=== PATIENT | male | born 1955 | race Caucasian/White ===

== ENCOUNTER 2016-12-02 09:27 | Inpatient (IN) | payer BC ==
[2016-10-17 13:08] VITALS: BMI 24.0
--- NOTE | 2016-10-17 13:37 | PAT Medication Instructions ---
Service Date Oct 17, 2016. Current Home Medication List Acetaminophen (Tylenol Arthritis Ext Rel), 1,300 MG PO PRN Ascorbic Acid (Vitamin C), 500 MG PO QAM Etodolac (Etodolac), 1 TAB PO BID Lorazepam (Ativan), 0.5 MG PO PRN Multivitamin (Multivitamin), 1 TAB PO QAM Nutritional Supplements (Dhea), 1 TAB PO DAILY [Viagra], 1 TAB PEG PRN Medication Instructions For Your Scheduled Surgery Etodolac (Etodolac), 1 TAB PO BID (check with surgeon for instructions) - Hold the following medications the morning of surgery: Nutritional Supplements (Dhea), 1 TAB PO DAILY Multivitamin (Multivitamin), 1 TAB PO QAM Ascorbic Acid (Vitamin C), 500 MG PO QAM [Viagra], 1 TAB PEG PRN - Take the following medications the morning of surgery with a sip of water: Lorazepam (Ativan), 0.5 MG PO PRN Acetaminophen (Tylenol Arthritis Ext Rel), 1,300 MG PO PRN - Take the following medications as scheduled the night before surgery: Lorazepam (Ativan), 0.5 MG PO PRN Acetaminophen (Tylenol Arthritis Ext Rel), 1,300 MG PO PRN [Viagra], 1 TAB PEG PRN If you have any questions please call us at [phone] (Symone Lawrence PA-C) or [phone] or [phone]
[2016-10-17 14:26] LABS: BASO % 0.6 %; BASO ABS # 0.03 K/uL (0-0.2); COMPLETE YES; EOS % 1.2 %; HEMATOCRIT 41.1 % (42-52); IG% 0.2 %; LYMPH % 25.5 %; LYMPH ABS # 1.28 K/uL (1.2-3.4); MEAN CELL VOLUME 90.9 fL (80-100); MEAN CORPUSCULAR HEMOGLOBIN 32.5 pg (25-34); MEAN CORPUSCULAR HGB CONC 35.8 g/dl (32-36); MEAN PLATELET VOLUME 9.8 fL (7.4-10.4); MONO % 10.6 %; NEUT % 61.9 %; PLATELET COUNT 299 K/uL (130-400); RED BLOOD COUNT 4.52 M/uL (4.7-6.1); WHITE BLOOD COUNT 5.02 K/uL (4.8-10.8)
[2016-10-17 14:42] LABS: PARTIAL THROMBOPLASTIN RATIO 1.1; PROTHROMBIN TIME (PATIENT) 10.5 SECONDS (9.0-12.0)
--- NOTE | 2016-10-17 15:43 | DIAGNOSTIC IMAGING REPORT ---
CHEST 2 VIEWS ROUTINE HISTORY: Preop. COMPARISON: None. FINDINGS: The lungs are clear. Cardiac silhouette is normal in size. No pleural effusions. No pneumothorax. IMPRESSION: No acute process. Electronically signed by: Josr Schrader M.D. 10/17/2016 3:41 PM Dictated Date/Time: 10/17/2016 3:40 PM
[2016-10-17 16:05] LABS: BUN/CREATININE RATIO 15.2 (10-20); CALCIUM 9.3 mg/dl (8.5-10.1); CREATININE 1.2 mg/dl (0.60-1.40); POTASSIUM 4.2 mmol/L (3.5-5.1)
--- NOTE | 2016-11-27 19:47 | HISTORY & PHYSICAL EXAMINATION ---
DATE OF ADMISSION: 12/02/2016 CHIEF COMPLAINT: Left hip pain. HISTORY OF PRESENT ILLNESS: A 61-year-old gentleman from [place] who presents for surgical treatment of his left hip. He has had several year history of increasing left hip pain and discomfort. This all dates back to a work related injury that he had. He has been managed in pain clinic for a while. He has had several injections to his back. He has been on various different medicines. He developed more and more groin pain. X-rays showed advanced hip arthritis. He has gotten markedly worse over the past year. He describes mostly groin pain, and thigh pain. He is unable to groves like he liked to. He cannot walk any long distances. He would now like to proceed with surgical treatment. PAST MEDICAL HISTORY: Significant for: 1. Sleep apnea. 2. Neck pain. 3. Low back pain. PREVIOUS SURGICAL HISTORY: Include: 1. Knee surgery. 2. Tonsillectomy. ALLERGIES: None. CURRENT MEDICATIONS: 1. Unspecified medicine. 2. Various anti-inflammatory medicines. SOCIAL HISTORY: A 61-year-old male patient from [place]. 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 Very active. FAMILY HISTORY: Noncontributory. REVIEW OF SYSTEMS: Negative for diabetes, neurologic problems, vascular problems, bleeding disorders. Denies any chest pain, no shortness of breath. No history of DVT or PE. PHYSICAL EXAMINATION: GENERAL: Reveals a healthy, pleasant, thin, middle-aged male. He looks to be in excellent health. HEENT: Benign. NECK: Supple. No lymphadenopathy. LUNGS: Clear to auscultation. HEART: Has a regular rate and rhythm. ABDOMEN: Soft, nontender, nondistended. EXTREMITIES: Grossly neurovascularly intact except as follows. Examination of left hip and leg reveals the patient walks with an antalgic gait. He is about a 0.5 cm short on the left side compared to the right. He can internally rotate to about 10 degrees which is painful. External rotation is stationed to 25 degrees. 10 degree flexion contracture. Negative straight leg raise. X-RAYS: X-rays of the left hip were reviewed. It shows advanced left hip DJD. He has got complete loss of the superior joint space. He has got cystic change in the femoral head and acetabulum. He has got a little bit of subluxation of his femoral head as well. ASSESSMENT: A 61-year-old male with a several year history of increasing left hip pain and discomfort consistent with advanced left hip degenerative joint disease. He has failed conservative treatment and would like to have his left hip replaced. PLAN: We will take him to the operating room and do a left total hip replacement. The risks and benefits of this procedure were explained to the patient including but not limited to DVT, PE, , infection, neurological injury, vascular injury, bleeding problem, pain, limited range of motion, stiffness, failure to relieve her symptoms, incomplete relief of symptoms, need for further surgery in the future, fracture, leg length inequality, nerve palsy, dislocation, need for revision surgery and fracture, etc. The patient understands and desires to proceed. Informed consent was obtained. The patient had preoperative workup. Chest x-ray showed no acute disease. EKG was normal. Labs were all normal. He is planning to be discharged to home using the [facility] home health program. MARLA
[~2016-12-02] VITALS: Ht 172.7 cm; Wt 72.2 kg
[2016-12-02] VITALS (14 sets, daily range): BP systolic 152–198; BP diastolic 79–114; PULSE 63–103; TEMP 36.3–36.6; O2SAT 96–100; Ht 172.7 cm; Wt 72.2 kg
[~2016-12-02 09:27] MED LIST: ACET1TAB84 PO; ACETAMINOPHEN 500 MG TAB PO SCH; ASCO1CAP3 PO; CEFAZOLIN 2000 MG/60 ML D5W 60 ML IV SCH; ETOD400T PO; FAMOTIDINE 20 MG TAB PO SCH; GABAPENTIN 300 MG CAP PO SCH; LACTATED RINGER'S 1000ML IV SCH; LACTATED RINGER'S 500 ML IV SCH; LORA-741 PO; METOCLOPRAMIDE HCL 10 MG TAB PO SCH; MULT-506 PO; NUTR50CA PO; SCOPOLAMINE 1.5 MG TDSY TD SCH; TRANEXAMIC ACID INJ 1,000 MG in SODIUM CHLORIDE 0.9% 100ML 100 ML IV SCH; VIAGRA PEG
[2016-12-02] MEDS ORDERED: BUPIVACAINE 0.5 % 5 MG/1 ML PF 10ML VIAL ONE (10:26)
[2016-12-02] MEDS ORDERED: ONDANSETRON INJ 2 MG/ML 2 ML VIAL ONE (11:23)
[2016-12-02] MEDS ORDERED: MIDAZOLAM HCL 1 MG/ML 2ML VIAL ONE (11:23)
[2016-12-02] MEDS ORDERED: FENTANYL CITRATE INJ 50 MCG/1 ML 2 ML VIAL ONE (11:23)
[2016-12-02] MEDS ORDERED: PROPOFOL IV EMULSION 10 MG/ML 20 ML VIAL IV ONE ×2 (11:23→12:53)
[2016-12-02] MEDS ORDERED: BUPIVACAINE/EPINEPHRINE 0.5% MPF 1:200,000 30 ML VIAL ONE (11:24)
[2016-12-02] MEDS ORDERED: BACITRACIN 50000 UNIT VIAL ONE (11:24)
[2016-12-02] MEDS ORDERED: MoRPHine SULFATE PF 1 MG/ML 10 ML AMP/VIAL ONE (11:32)
--- NOTE | 2016-12-02 11:38 | History & Physical Bridge Note ---
H&P Re-Evaluation Bridge Note: I have examined the patient, reviewed the History & Physical and in the interval since the performance of the History & Physical I have noted the following changes of clinical significance: No changes noted
[2016-12-02] MEDS ORDERED: EpHEDrine SULFATE 50MG/5ML SYR ONE (12:06)
[2016-12-02] MEDS ORDERED: PHENYLEPHRINE HCL INJ 10 MG/ML VIAL ONE (12:24)
--- NOTE | 2016-12-02 13:26 | [facility] Post Operative Brief Note ---
Immediate Operative Summary Operative Date December 02, 2016. Pre-Operative Diagnosis Advanced Left Hip degenerative joint disease Post-Operative Diagnosis Advanced Left Hip degenerative joint disease Procedure(s) Performed Left Total Hip Arthroplasty Uncemented Surgeon Dr. Garcia Elevator Service Technician Surgeon(s) Chan Flanagan Estimated Blood Loss 250 cc Findings Left Hip DJD Fluids (cc crystalloids) 1500 cc Specimens A: Left femoral Head Drains None Anesthesia Spinal Complication(s) None Disposition Recovery Room / PACU
[2016-12-02] MEDS ORDERED: TAMSULOSIN HCL 0.4 MG CAP PO PRN (13:30)
[2016-12-02] MEDS ORDERED: ALUMINUM/MAGNESIUM/SIMETH (MAALOX MAX) 30 ML UDC PO PRN (13:30)
[2016-12-02] MEDS ORDERED: LORAZEPAM 0.5 MG TAB PO PRN (13:30)
[2016-12-02] MEDS ORDERED: ONDANSETRON INJ 2 MG/ML 2 ML VIAL IV PRN ×2 (13:30→14:00)
[2016-12-02] MEDS ORDERED: ZOLPIDEM TARTRATE 5 MG TAB PO PRN (13:30)
[2016-12-02] MEDS ORDERED: METOCLOPRAMIDE HCL INJ 5 MG/ML 2 ML VIAL IV PRN (13:30)
[2016-12-02] MEDS ORDERED: BISACODYL 10 MG SUPP PR PRN (13:30)
[2016-12-02] MEDS ORDERED: MAGNESIUM HYDROXIDE SUSP 30 ML UDC PO PRN (13:30)
[2016-12-02] MEDS ORDERED: SILVER SULFADIAZINE 1% CR 50 GM JAR EXT PRN (13:30)
[2016-12-02] MEDS ORDERED: NALOXONE HCL INJ 0.08 MG in SYRINGE 1.8 ML IV PRN (13:58)
[2016-12-02] MEDS ORDERED: LACTATED RINGER'S 1000ML 500 ML IV PRN (13:58)
[2016-12-02] MEDS ORDERED: NALOXONE HCL INJ 1 MG in SODIUM CHLORIDE 0.9% 1000ML 1,000 ML IV PRN ×4 (13:58)
[2016-12-02] MEDS ORDERED: SODIUM CHLORIDE 0.9% 1000ML 1,000 ML IV PRN (13:58)
[2016-12-02] MEDS ORDERED: DiphenhydrAMINE HCL 50 MG/ML VIAL IV PRN (14:00)
[2016-12-02] MEDS ORDERED: EpHEDrine SULFATE INJ 50 MG/ML AMP IV PRN (14:00)
[2016-12-02] MEDS ORDERED: MoRPHine SULFATE PF 1 MG/ML 10 ML AMP/VIAL EPI PRN (14:00)
[2016-12-02] MEDS ORDERED: PROMETHAZINE HCL INJ 25 MG in SODIUM CHLORIDE 0.9% 50ML 50 ML IV PRN (14:00)
[2016-12-02] MEDS ORDERED: NO NARCOTICS OR SEDATIVES SCH (14:00)
[2016-12-02] MEDS ORDERED: NALOXONE HCL 0.4 MG/1 ML VIAL/CARP IV PRN (14:00)
[2016-12-02] MEDS ORDERED: NALBUPHINE HCL INJ 10 MG/ML AMP IV PRN (14:00)
--- NOTE | 2016-12-02 14:12 | DIAGNOSTIC IMAGING REPORT ---
AP PELVIS, CROSSTABLE LATERAL LEFT HIP History: Left total hip arthroplasty. Degenerative arthritis. Postop. FINDINGS: The patient is status post a left total hip arthroplasty. The hardware is intact. No fracture or dislocation. Skin daljit are in place. IMPRESSION: Left total hip arthroplasty. No evidence for hardware complication. Electronically signed by: Josr Schrader M.D. 12/02/2016 2:11 PM Dictated Date/Time: 12/02/2016 2:09 PM
--- NOTE | 2016-12-02 14:25 | Anesthesiology Progress Note ---
Anesthesia Post Op Note Date & Time December 02, 2016 at 14:24 Vital Signs Pain Intensity: 0 Vital Signs Past 12 Hours Date Time Temp Pulse Resp B/P Pulse Ox O2 Delivery O2 Flow Rate FiO2 12/02/16 14:15 36.5 65 16 149/73 99 Nasal Cannula 3 12/02/16 14:05 36.5 73 16 155/66 99 Nasal Cannula 3 12/02/16 13:55 66 16 158/78 99 Nasal Cannula 3 12/02/16 13:35 68 16 146/75 99 Mask 10 12/02/16 13:27 36.6 79 16 145/68 94 Mask 10 12/02/16 09:58 36.5 66 17 160/92 100 Room Air Notes Mental Status: alert / awake / arousable, participated in evaluation Pt Amnestic to Procedure: Yes Nausea / Vomiting: adequately controlled Pain: adequately controlled Airway Patency, RR, SpO2: stable & adequate BP & HR: stable & adequate Hydration State: stable & adequate Neuraxial Anesthesia: was administered, sensory block is resolving Anesthetic Complications: no major complications apparent
[2016-12-02] MEDS ORDERED: D5W AND 1/2NSS + 20MEQ KCL 1,000 ML IV SCH (15:30)
[2016-12-02] MEDS: CHECK SCOPOLAMINE PATCH PLACEMENT SCH ×2 (16:00→23:33)
--- NOTE | 2016-12-02 16:18 | OPERATIVE REPORT ---
DATE OF OPERATION: 12/02/2016 SURGEON: Dr. Royal Garcia. [facility] PROFESSOR: CLAYTON Dawkins PREOPERATIVE DIAGNOSIS: Left hip degenerative joint disease. POSTOPERATIVE DIAGNOSIS: Same. PROCEDURE PERFORMED: Left uncemented ceramic on highly cross-linked polyethylene total hip arthroplasty. COMPLICATIONS: None. ESTIMATED BLOOD LOSS: 250 mL. FLUID REPLACEMENT: 1500 mL crystalloid fluid replacement. ANESTHESIA: Spinal. DRAINS: None. SPECIMENS: Left femoral head sent for pathology. OPERATIVE INDICATIONS: The patient is a 61-year-old gentleman who has had a several year history of left hip pain and discomfort. This all dates back to work-related injury that he had years ago. He has been through extensive conservative treatment including pain management, anti-inflammatories without recent relief. Started to become more limiting in his activities including inability to walk any long distance or hike or groves. X-rays revealed advanced left hip DJD. He elected to proceed with total hip arthroplasty. OPERATIVE FINDINGS: Operative findings revealed advanced left hip DJD. He had grade 4 [id number] disease of the femoral head and acetabulum. Moderate size joint effusion. Some mild synovitis. OPERATIVE IMPLANTS: Operative implants consisted of: 1. A Biomet G7 size 54 mm acetabular shell. 2. An apex hole eliminator. 3. A 6.5 cancellous acetabular screws, 1 at 35 mm length and 1 at 25 mm in length. 4. A highly cross-linked polyethylene liner with a 54 mm outer diameter, 36 mm inner diameter. 5. A DePuy size 15 large stature standard offset femoral stem. 6. A +5/36 mm ceramic articular ball. OPERATIVE PROCEDURE: The patient taken to the operating room, identified and placed on the operating table in supine position. All contact areas were appropriately padded. IV antibiotics were provided by the anesthesia team. A spinal anesthetic had been implemented in the holding area. Zeng catheter was placed in a sterile fashion. The patient was then placed in the right lateral decubitus position. An axillary roll was placed. [facility] hip positioner was used for positioning. The left hip and leg were then prepped and draped in the usual sterile fashion. A posterolateral approach to the left hip was then performed through a curvilinear incision centered over the greater trochanter. Sharp dissection was carried out through the subcutaneous tissues down to the level of the IT band and gluteal fascia. The IT band and gluteal fascia were then incised longitudinally in line with skin incision. The underlying greater trochanteric bursa was excised. The piriformis and external rotators were tagged and taken off the posterior aspect of the femur. Great care was taken throughout the procedure to protect the sciatic nerve at all times. Posterior capsulotomy was then performed leaving a large flap for later repair. Hip was internally rotated and dislocated. Femoral neck osteotomy cut was made with the final cut 10 mm above the lesser trochanter. Femoral head was removed and sent for pathology. The femur was retracted anteriorly. Attention was then drawn to the acetabulum. The acetabular labrum was excised. The pulvinar fat was excised. Sequential reaming of the acetabulum was then performed beginning with a size 49 and progressing up to 53. A 54 mm Biomet G7 acetabular shell was then placed in about 40 degrees of lateral opening and 20 degrees of anteversion. It was fixed with two 6.5 cancellous acetabular screws. Osteophytes were removed anteriorly. A trial liner was placed. Attention was then drawn to the femur. The proximal femur was entered with a cookie cutter followed by canal finder and lateralizing reamer. Sequential reaming of the femur was then performed beginning with a size 10 and progressing up to a 14.5. We got good chatter at 14.5. I broached beginning with a size 12 small broach and progressing up to a 15 large. I could not quite get this the whole way down to the calcar cut. We then trialed the hip, with a +5 articular ball, the hip was fully stable in full extension and external rotation and flexion to 90 degrees, internal rotation to 60+ degrees and 90 degrees of flexion. I trialed the high offset stem, but the soft tissue tension just seemed too tight, so we used the standard stem. Attention was then drawn toward placing these components. All trial components were removed. An apex hole eliminator was placed. A highly cross-linked polyethylene liner was placed. A 15 large stature AML femoral stem was placed. We got excellent scratch fit for about 7 cm of the stem. A +5/36 mm ceramic articular ball was placed. Hip was then located and found to be stable. Attention was then drawn toward closing. The wound was irrigated with copious amounts of pulsatile lavage solution. I injected locally with 50 mL of 0.5% Marcaine with epinephrine. The posterior capsule and external rotators were repaired through drill holes in the posterior trochanter with #2 Ti-Cron suture. The IT band and gluteal fascia were then closed with #1 PDS suture in running fashion. The subcutaneous tissues were then closed in 2 layers with the deep layer #1 Vicryl suture, the subcutaneous tissues with 2-0 Dexon suture in a buried interrupted fashion. The skin was closed with skin daljit. Leg was then cleaned and dried and a sterile dressing of Xeroform, 4 x 4, ABD pad and foam tape was applied. The patient then transferred to the recovery room in stable condition. The patient tolerated the procedure well with no complications. All needle and sponge counts were correct at the end of the operation. I attest to the content of the Intraoperative Record and any orders documented therein. Any exceptio ns are noted below.
[2016-12-02] MEDS ORDERED: HydrALAZINE HCL 20 MG/ML VIAL IM STA (17:43)
[2016-12-02] MEDS ORDERED: HydrALAZINE HCL 20 MG/ML VIAL ONE (17:44)
--- NOTE | 2016-12-02 18:02 | Medical Consult ---
Consultation Date of Consultation: December 02, 2016. Attending Physician: Royal Garcia M.D. Reason for Consultation: Hypertension, medical management History of Present Illness This is a 61 yo M with PMHx of hyperlipidemia, chronic chewing tobacco use, osteoarthritis, insomnia and left hip DJD now s/p L ALEX by Dr. Garcia on . Medicine has been consulted for hypertension s/p surgical procedure. The patient reports he does not have any cardiac history and has not ever been diagnosed with elevated BP. Normally he runs in the 125-130s SBP. His noted to nursing staff that he appeared flushed earlier, but he reports never feeling warm or flushed. He reports being a chronic user of chewing tobacco and last time he chewed was last evening. He typically uses this 3x daily. He denies lightheadedness, dizziness, chest pain, palpitations, flutter, shortness of breath of acute pain. His hip pain is relatively well controlled while he is sitting still and only hurts when he attempts to get up. Past Medical/Surgical History Hyperlipidemia Chronic chewing tobacco use Osteoarthritis Insomnia Left hip DJD Social History Smoking Status: Former Smoker Smokeless Tobacco Use: Yes Drug Use: none Marital Status: Housing Status: lives with family Occupation Status: employed Allergies Coded Allergies: No Known Allergies (Unverified , 10/17/16) Current Inpatient Medications Current Inpatient Medications Medications (Trade) Dose Ordered Sig/Adia Route Start Time Stop Time Status Last Admin Dose Admin Famotidine (Pepcid Tab) 20 mg PREOP PO 12/02/16 06:00 12/02/16 18:00 12/02/16 06:00 20 MG Gabapentin (Neurontin Cap) 600 mg PREOP PO 12/02/16 06:00 12/02/16 18:00 12/02/16 10:32 600 MG Miscellaneous (Remove Transderm-Scop Patch) 1 ea Q72H N/A 12/05/16 06:00 12/05/16 06:01 Miscellaneous Information (Check Scopolamine Patch Placement) 1 ea QS N/A 12/02/16 16:00 12/04/16 05:59 12/02/16 16:00 1 EA Ketorolac Tromethamine (Toradol Inj) 30 mg Q6H IV. 12/03/16 08:00 12/05/16 07:59 Oxycodone HCl (Roxicodone Immediate Rel Tab) 1 TABLET FOR PAIN RATING... Q4H PRN PO 12/03/16 07:01 12/17/16 07:00 Morphine Sulfate (MoRPHine SULFATE INJ) 2 mg Q1H PRN IV 12/03/16 07:01 12/17/16 07:00 Acetaminophen (Tylenol Tab) 1,000 mg Q8H PO 12/02/16 22:00 01/01/17 15:59 Magnesium Hydroxide (Milk Of Magnesia Susp) 30 ml Q6H PRN PO 12/02/16 13:30 01/01/17 13:29 Bisacodyl (Dulcolax Supp) 10 mg DAILY PRN NM 12/02/16 13:30 01/01/17 13:29 Senna (Senokot Tab) 17.2 mg HS PO 12/02/16 21:00 01/01/17 20:59 Docusate Sodium (coLACE CAP) 100 mg BID PO 12/02/16 21:00 01/01/17 20:59 Al Hydrox/Mg Hydrox/Simethicone (Maalox Max Susp) 15 ml Q4H PRN PO 12/02/16 13:30 01/01/17 13:29 Zolpidem Tartrate (Ambien Tab) 5 mg HSZ PRN PO 12/02/16 13:30 01/01/17 13:29 Multivitamins (Multivitamin Tab) 1 tab QAM PO 12/03/16 09:00 01/02/17 08:59 Ondansetron HCl (Zofran Inj) 4 mg Q6H PRN IV 12/02/16 13:30 01/01/17 13:29 Future hold Metoclopramide HCl (Reglan Inj) 10 mg Q6H PRN IV 12/02/16 13:30 01/01/17 13:29 Future hold Ferrous Gluconate (Ferrous Gluconate Tab) 324 mg TIDM PO 12/02/16 17:45 01/01/17 17:59 Pantoprazole Sodium (Protonix Tab) 40 mg QAM PO 12/03/16 09:00 01/02/17 08:59 Silver Sulfadiazine (Silvadene 1% Crm 50GM Jar) 1 appln BID PRN EXT 12/02/16 13:30 01/01/17 13:29 Aspirin (Ecotrin Tab) 325 mg BID PO 12/02/16 21:00 01/01/17 20:59 Tamsulosin HCl 0.4 mg 0.4 mg QAM PRN PO 12/02/16 13:30 01/01/17 13:29 Cefazolin Sodium/ Dextrose (Ancef Iv/D5 50ml) 55 ml @ 100 mls/hr Q8H IV 12/02/16 18:00 12/03/16 02:32 Tapentadol 50 mg 50 mg BID PO 12/03/16 09:00 01/02/17 08:59 Tranexamic Acid/ Sodium Chloride (Cyklokapron Inj/ Nss 100ml) 110 ml @ 660 mls/hr TODAY@2000 IV 12/02/16 20:00 12/02/16 21:00 Lorazepam (Ativan Tab) 0.5 mg DAILY PRN PO 12/02/16 13:30 01/01/17 13:29 Ascorbic Acid (Vitamin C Tab) 500 mg QAM PO 12/03/16 09:00 01/02/17 08:59 Naloxone HCl (Narcan Inj) 0.1 mg UD PRN IV 12/02/16 14:00 12/03/16 07:00 Diphenhydramine HCl (Benadryl Inj) 25 mg Q6H PRN IV 12/02/16 14:00 12/03/16 07:00 Nalbuphine HCl 5 mg 5 mg Q10M PRN IV 12/02/16 14:00 12/03/16 07:00 Naloxone HCl/ Sodium Chloride (Narcan Inj/Nss 1000ml) 1,002.5 ml @ 50 mls/hr Q20H3M PRN IV 12/02/16 13:58 12/03/16 07:00 Ondansetron HCl 4 mg 4 mg Q6H PRN IV 12/02/16 14:00 12/03/16 07:00 Promethazine HCl 25 mg/Sodium Chloride 51 ml @ 200 mls/hr Q6H PRN IV 12/02/16 14:00 12/03/16 07:00 Naloxone HCl/ Sodium Chloride (Narcan Inj/Nss 1000ml) 1,002.5 ml @ 50 mls/hr Q20H3M PRN IV 12/02/16 13:58 12/03/16 07:00 Miscellaneous Information (Dc Intraspinal Morphine) 0.4 ea TODAY@0700 N/A 12/03/16 07:00 12/03/16 07:01 Miscellaneous Information 1 ea 1 ea UD N/A 12/02/16 14:00 12/03/16 07:00 Naloxone HCl 0.08 mg/Syringe 2 ml @ 1 mls/min Q2M PRN IV 12/02/16 13:58 12/03/16 07:00 Lactated Ringer's (Lr 1000ml) 500 ml @ 999 mls/hr Q31M PRN IV 12/02/16 13:58 12/03/16 07:00 Ephedrine Sulfate (EpHEDrine SULFATE INJ) 10 mg Q5M PRN IV 12/02/16 14:00 12/03/16 07:00 Morphine Sulfate TODAY PRN EPI 12/02/16 14:00 12/03/16 07:00 Sodium Chloride (Nss 1000ml) 1,000 ml @ 15 mls/hr Q24H PRN IV 12/02/16 13:58 12/03/16 07:00 Hydralazine HCl (HydrALAZINE INJ) 10 mg NOW STAT IM 12/02/16 17:43 12/02/16 17:44 UNV Review of Systems Constitutional: No chills, No fatigue, No fever, No sweats Eyes: No diplopia, No worsening of vision ENT: No sore throat, No trouble swallowing Respiratory: No cough, No dyspnea at rest, No dyspnea on exertion, No shortness of breath, No sputum, No wheezing Cardiovascular: No chest pain, No palpitations Abdomen: No constipation, No diarrhea, No nausea, No pain, No vomiting Musculoskeletal: No calf pain, No joint pain, No swelling Genitourinary - Male: No dysuria, No hematuria Neurologic: No numbness/tingling Endocrine: No fatigue Integumentary: No itch, No rash Physical Exam Date Time Temp Pulse Resp B/P Pulse Ox O2 Delivery O2 Flow Rate FiO2 12/02/16 17:44 64 172/114 12/02/16 17:30 Nasal Cannula 2.0 12/02/16 17:25 99 Nasal Cannula 2.0 12/02/16 16:30 36.3 79 16 198/93 97 Nasal Cannula 2.0 12/02/16 15:30 36.5 66 16 169/84 96 Nasal Cannula 12/02/16 15:05 63 18 163/94 99 12/02/16 14:30 36.4 64 18 166/89 99 Nasal Cannula 2.0 12/02/16 14:15 36.5 65 16 149/73 99 Nasal Cannula 3 12/02/16 14:05 36.5 73 16 155/66 99 Nasal Cannula 3 12/02/16 13:55 66 16 158/78 99 Nasal Cannula 3 12/02/16 13:35 68 16 146/75 99 Mask 10 12/02/16 13:27 36.6 79 16 145/68 94 Mask 10 12/02/16 09:58 36.5 66 17 160/92 100 Room Air General Appearance: WD/WN, no apparent distress, + pertinent finding ( physically fit) Head: normocephalic, atraumatic Eyes: PERRL, EOMI ENT: hearing grossly normal, pharynx normal Neck: supple, no adenopathy, no JVD Respiratory/Chest: chest non-tender, lungs clear, normal breath sounds, no respiratory distress, no accessory muscle use Cardiovascular: regular rate, rhythm, no JVD, no murmur Abdomen/GI: normal bowel sounds, non tender, soft, no organomegaly Genitourinary - Male: + pertinent finding (hawk cath in place) Back: normal inspection Extremities/Musculoskelatal: normal inspection, no calf tenderness, no pedal edema, + pertinent finding (Teds on, Left hip bandage appears c/d/i. ) Neurologic/Psych: alert, normal reflexes, oriented x 3, + pertinent finding ( sensation intact distal LE, no motor deficits) Skin: normal color, warm/dry Assessment & Plan This is a 61 yo M with PMHx of hyperlipidemia, chronic chewing tobacco use, osteoarthritis, insomnia and left hip DJD now s/p L ALEX by Dr. Garcia on . Medicine has been consulted for hypertension s/p surgical procedure. S/p L ALEX by Dr. Garcia on 12/02/16 - Analgesia and DVT ppx per primary team - Bowel regimen in place - PT/OT Hypertension - EKG ordered and reviewed showing NSR with old R BBB, - Ordered total of hydralazine 25 mg IV and will allow 10 mg IV prn for SBP > 160 and DBP > 110 Chronic tobacco abuse - Pt chews tobacco 3 x daily, question if this may be worsening his BP from going through slight withdrawal along with surgical procedure. - Will order a Nicotine patch prn if the pt feels agitated Hyperlipidemia - Diet and exercise controlled, pt is not on statin therapy per [employer] Insomnia - Occasionally uses Ativan 0.5 mg daily prn for sleep, has not requested so no need to order at this time DVT ppx: teds, scds, per primary team CODE STATUS: FULL CODE Disposition: PT/OT elizabeth, from home Reviewed: Pt Seen/Exam by Me History Pt has no concerns at this time. Hip pain is well controlled. Denies nicotine withdrawal/craving sx. No chest pain or SOB. No prior hx of HTN. States that he BP at his pre-op appt was 130s systolic Agree with HPI/ROS as noted. General Appearance: WD/WN, no apparent distress Respiratory: normal breath sounds, no respiratory distress Cardiovascular: normal peripheral pulses, regular rate, rhythm Gastrointestinal: non tender, soft Extremities: non-tender, no pedal edema Neurologic/Psychiatric: alert, oriented x 3 Skin Characteristics: warm/dry, other (skin around lower lip is red and pt rubbing it while we are talking) Assessment/Plan Agree with plan as outlined above Elevated BP post-op with no prior hx of HTN Hydralazine 25mg total with small improvement to 150s, now back to upper 170s and mild tachycardia Denying pain or nicotine withdrawal. Both I and Ms. Ahn offered nicotine patch but pt is declining and denies withdrawal. Does appear to be rubbing his lower lip intensely, possible withdrawal that pt does not wish to admit?? Add metoprolol 12.5mg x1 and monitor EKG WNL
[2016-12-02] MEDS: CEFAZOLIN IV 1,000 MG in DEXTROSE 5% 50ML 50 ML IV SCH (18:15)
[2016-12-02] MEDS: FERROUS GLUCONATE 324 MG TAB PO SCH (18:15)
[2016-12-02] MEDS ORDERED: HydrALAZINE HCL 20 MG/ML VIAL IV. PRN (18:30)
--- NOTE | 2016-12-02 18:36 | PROGRESS NOTE ---
DATE: 12/02/2016 SUBJECTIVE: This 61-year-old gentleman postop from a left total hip replacement. He is doing well. Not having any pain. Denies any chest pain or shortness of breath. Not feeling dizzy or lightheaded. OBJECTIVE: VITAL SIGNS: Temperature 36.5. Vital signs stable. GENERAL: Reveals a pleasant, middle-aged male. He is sitting up in bed, looks pretty comfortable. LUNGS: Clear to auscultation. HEART: Regular rate and rhythm. ABDOMEN: Soft, nontender, nondistended. EXTREMITIES: Grossly neurovascularly intact except as follows: Examination of the left hip and leg reveals the leg lengths to be equal. Hip is located. He can dorsiflex and plantarflex his foot appropriately. He is neurologically intact. X-RAYS: X-rays of the left hip from recovery room were reviewed. It shows a left uncemented total hip arthroplasty. Components looked to be in good position. No signs of problems. ASSESSMENT: This 61-year-old gentleman postop from a left total hip replacement, doing well. Hip is located. He is neurologically intact. His pain is controlled. PLAN: 1. DVT prophylaxis including thigh-high TEDs, SCDs, and aspirin twice a day. 2. PT/OT. Weightbear as tolerated. Left total hip protocol. 3. Pain control, doing pretty well with current pain regimen. 4. IV antibiotics x 24 hours. 5. Disposition: Plan to discharge him to home with some home health once adequately recovered.
[2016-12-02] MEDS ORDERED: NICOTINE 7 MG/24 HR TDSY TD PRN (19:00)
[2016-12-02] MEDS ORDERED: HydrALAZINE HCL 20 MG/ML VIAL IV. SCH (19:15)
[2016-12-02] MEDS ORDERED: TRANEXAMIC ACID INJ 1,000 MG in SODIUM CHLORIDE 0.9% 100ML 100 ML IV SCH (20:00)
[2016-12-02] MEDS ORDERED: METOPROLOL TARTRATE 25 MG TAB PO ONE (20:45)
[2016-12-02] MEDS: DOCUSATE SODIUM 100 MG CAP PO SCH (21:18)
[2016-12-02] MEDS: ASPIRIN 325 MG ECTAB PO SCH (21:19)
[2016-12-02] MEDS: SENNA 8.6 MG TAB PO SCH (21:19)
[2016-12-02] MEDS: ACETAMINOPHEN 500 MG TAB PO SCH (22:11)
[2016-12-03] VITALS (8 sets, daily range): BP systolic 99–146; BP diastolic 61–77; PULSE 70–74; TEMP 36.5–36.9; O2SAT 93–97
[2016-12-03] MEDS: CEFAZOLIN IV 1,000 MG in DEXTROSE 5% 50ML 50 ML IV SCH (01:39)
[2016-12-03] MEDS: ACETAMINOPHEN 500 MG TAB PO SCH ×3 (05:14→21:18)
[2016-12-03 06:32] LABS: BASO % 0.1 %; BASO ABS # 0.01 K/uL (0-0.2); COMPLETE YES; HEMATOCRIT 39.3 % (42-52); IG% 0.3 %; LYMPH % 13.5 %; LYMPH ABS # 1.34 K/uL (1.2-3.4); MEAN CORPUSCULAR HEMOGLOBIN 32.5 pg (25-34); MEAN CORPUSCULAR HGB CONC 34.6 g/dl (32-36); MEAN PLATELET VOLUME 9.6 fL (7.4-10.4); MONO % 12.9 %; NEUT % 73.2 %; PLATELET COUNT 286 K/uL (130-400); RED BLOOD COUNT 4.18 M/uL (4.7-6.1); WHITE BLOOD COUNT 9.94 K/uL (4.8-10.8)
[2016-12-03] MEDS ORDERED: DC INTRASPINAL MORPHINE SCH (07:00)
[2016-12-03] MEDS ORDERED: OXYCODONE HCL IR 5 MG TAB (IMMEDIATE RELEASE) PO PRN (07:01)
[2016-12-03] MEDS ORDERED: MoRPHine SULFATE 2 MG/ML CARP IV PRN (07:01)
[2016-12-03 07:13] LABS: BUN/CREATININE RATIO 14.8 (10-20); CALCIUM 8.9 mg/dl (8.5-10.1); POTASSIUM 4.4 mmol/L (3.5-5.1)
[2016-12-03] MEDS: CHECK SCOPOLAMINE PATCH PLACEMENT SCH ×2 (08:00→16:00)
[2016-12-03] MEDS: KETOROLAC TROMETHAMINE 30 MG/ML VIAL IV. SCH ×3 (08:00→19:24)
--- NOTE | 2016-12-03 08:04 | PROGRESS NOTE ---
DATE: 12/03/2016 SUBJECTIVE: A 61-year-old gentleman postop day #1 from a left total hip replacement. He is doing well. He has had some hypertension and medicine has been evaluating and treating this. He does not have much pain. Denies any chest pain or shortness of breath. Not feeling dizzy or lightheaded. OBJECTIVE: VITAL SIGNS: Temperature 36.5. Vital signs stable. GENERAL: Physical examination reveals a healthy, pleasant, middle-aged male. He is sitting up in bed and looks pretty comfortable. LUNGS: Clear to auscultation. HEART: Regular rate and rhythm. ABDOMEN: Soft, nontender, and nondistended. EXTREMITIES: Grossly neurovascularly intact except as follows: Examination of left hip and leg reveals the leg to be well aligned. Hip is located. Dressing is clean, dry and intact. His thigh is soft and supple. He is neurologically intact. LABORATORY DATA: Hemoglobin 13.6. Hematocrit 39.4. Electrolytes are pending. ASSESSMENT: A 61-year-old gentleman postop day #1 from a left total hip replacement, doing pretty well. Pain is controlled. He has had some hypertension, but currently under control. Medicine is evaluating and treating this. It does not seem to be pain related. PLAN: 1. DVT prophylaxis including thigh-high TEDs, SCDs, and aspirin twice a day. 2. PT/OT. Weightbearing as tolerated. Left total hip protocol. 3. Pain control. Doing well with current pain regimen. Really not having much pain. 4. Disposition: Plan to discharge to home with some home health once adequately recovered.
[2016-12-03] MEDS: FERROUS GLUCONATE 324 MG TAB PO SCH ×3 (08:30→18:24)
[2016-12-03] MEDS: PANTOprazole SOD 40 MG TAB PO SCH (09:00)
[2016-12-03] MEDS: ASCORBIC ACID 500 MG TAB PO SCH (09:00)
[2016-12-03] MEDS ORDERED: NUTRITIONAL SUPPLEMENTS PO SCH (09:00)
[2016-12-03] MEDS: DOCUSATE SODIUM 100 MG CAP PO SCH ×2 (09:00→21:17)
[2016-12-03] MEDS: ASPIRIN 325 MG ECTAB PO SCH ×2 (09:00→21:18)
[2016-12-03] MEDS: TAPENTADOL ER 50 MG TABCR PO SCH ×2 (09:00→21:22)
[2016-12-03] MEDS: MULTIVITAMIN TAB PO SCH (09:00)
[2016-12-03] MEDS ORDERED: MULTIVITAMIN TAB PO SCH (09:00)
[2016-12-03] MEDS ORDERED: METOPROLOL SUCC 25MG EXT REL TAB PO ONE (10:53)
--- NOTE | 2016-12-03 10:58 | Hospitalist Progress Note ---
Hospitalist Progress Note Date of Service December 03, 2016. Subjective Pt evaluation today including: conversation w/ patient DOing very well, pain fairly well controlled, was just up with PT. No CP or SOB , no PUENTES or visual changes, no numbness or tingling. Had 1 episode of N/V last night but now no N/V, eating food and no abd pain. No BM yet Received metoprolol last night and BPs much improved All Other Systems: Reviewed and Negative Objective Vital Signs Date Time Temp Pulse Resp B/P Pulse Ox O2 Delivery O2 Flow Rate FiO2 12/03/16 07:10 36.8 71 15 116/61 95 Room Air 12/03/16 03:53 36.5 74 17 126/77 97 Room Air 12/03/16 02:40 18 95 Nasal Cannula 2.0 12/03/16 00:30 18 97 Nasal Cannula 2.0 12/02/16 23:47 36.5 76 18 159/79 98 Nasal Cannula 2.0 12/02/16 22:30 18 97 Nasal Cannula 2.0 12/02/16 21:30 20 96 Nasal Cannula 2.0 12/02/16 21:09 90 161/82 12/02/16 20:30 18 97 Nasal Cannula 2.0 12/02/16 20:18 Nasal Cannula 12/02/16 20:00 36.6 103 16 175/79 96 Nasal Cannula 2.0 12/02/16 19:06 80 152/88 12/02/16 18:21 91 20 178/98 96 Nasal Cannula 2.0 12/02/16 17:44 64 172/114 12/02/16 17:30 Nasal Cannula 2.0 12/02/16 17:25 99 Nasal Cannula 2.0 12/02/16 16:30 36.3 79 16 198/93 97 Nasal Cannula 2.0 12/02/16 15:30 36.5 66 16 169/84 96 Nasal Cannula 12/02/16 15:05 63 18 163/94 99 12/02/16 14:30 36.4 64 18 166/89 99 Nasal Cannula 2.0 12/02/16 14:15 36.5 65 16 149/73 99 Nasal Cannula 3 12/02/16 14:05 36.5 73 16 155/66 99 Nasal Cannula 3 12/02/16 13:55 66 16 158/78 99 Nasal Cannula 3 12/02/16 13:35 68 16 146/75 99 Mask 10 12/02/16 13:27 36.6 79 16 145/68 94 Mask 10 Physical Exam General Appearance: WD/WN, no apparent distress Eyes: normal inspection, sclerae normal ENT: hearing grossly normal Neck: no carotid bruits, trachea midline Respiratory/Chest: lungs clear, normal breath sounds, no respiratory distress, no accessory muscle use Cardiovascular: regular rate, rhythm, no edema, no gallop, no murmur Abdomen: normal bowel sounds, non tender, soft, no organomegaly, no pulsatile mass Extremities: no pedal edema, no calf tenderness, + pertinent finding (left hip with dressing c/d/i) Neurologic/Psychiatric: alert, normal mood/affect, oriented x 3 Skin: normal color, warm/dry, no rash Laboratory Results Last 24 Hours Test 12/03/16 06:08 White Blood Count 9.94 K/uL Red Blood Count 4.18 M/uL Hemoglobin 13.6 g/dL Hematocrit 39.3 % Mean Corpuscular Volume 94.0 fL Mean Corpuscular Hemoglobin 32.5 pg Mean Corpuscular Hemoglobin Concent 34.6 g/dl Platelet Count 286 K/uL Mean Platelet Volume 9.6 fL Neutrophils (%) (Auto) 73.2 % Lymphocytes (%) (Auto) 13.5 % Monocytes (%) (Auto) 12.9 % Eosinophils (%) (Auto) 0.0 % Basophils (%) (Auto) 0.1 % Neutrophils # (Auto) 7.28 K/uL Lymphocytes # (Auto) 1.34 K/uL Monocytes # (Auto) 1.28 K/uL Eosinophils # (Auto) 0.00 K/uL Basophils # (Auto) 0.01 K/uL RDW Standard Deviation 39.7 fL RDW Coefficient of Variation 11.8 % Immature Granulocyte % (Auto) 0.3 % Immature Granulocyte # (Auto) 0.03 K/uL Sodium Level 138 mmol/L Potassium Level 4.4 mmol/L Chloride Level 104 mmol/L Carbon Dioxide Level 28 mmol/L Anion Gap 6.0 mmol/L Blood Urea Nitrogen 15 mg/dl Creatinine 1.00 mg/dl Est Creatinine Clear Calc Drug Dose 74.1 ml/min Estimated GFR () 93.1 Estimated GFR (Non- 80.3 BUN/Creatinine Ratio 14.8 Random Glucose 119 mg/dl Calcium Level 8.9 mg/dl Assessment and Plan This is a 61 yo M with PMHx of hyperlipidemia, chronic chewing tobacco use, osteoarthritis, insomnia and left hip DJD now s/p L ALEX by Dr. Garcia on . Medicine has been consulted for hypertension s/p surgical procedure. S/p L ALEX by Dr. Garcia on 12/02/16 - Analgesia and DVT ppx per primary team - Bowel regimen in place - PT/OT -ASA bid for DVT proph -plan for dc to home with home health when ready Hypertension-much improved after IV hydralazine and one dose metoprolol tartrate last night. May have been secondary to post-op pain or anxiety. No previous history. 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 - Will order a Nicotine patch prn if the pt feels agitated Hyperlipidemia - Diet and exercise controlled, pt is not on statin therapy per [employer] Insomnia - Occasionally uses Ativan 0.5 mg daily prn for sleep, has not requested so no need to order at this time DVT ppx: teds, scds, per primary team CODE STATUS: FULL CODE Disposition: PT/OT elizabeth, from home
[2016-12-03] MEDS ORDERED: ASPEC325 PO (20:23)
[2016-12-03] MEDS ORDERED: RXC5 PO (20:23)
[2016-12-03] MEDS ORDERED: ACET-1138 PO (20:23)
--- NOTE | 2016-12-03 20:26 | Discharge Instructions ---
Discharge Instructions Date of Service December 03, 2016. Admission Reason for Admission: Left Hip Degenerative Joint Disease Discharge Discharge Diagnosis / Problem: Left Hip Replacement Discharge Goals Goal(s): Decrease discomfort, Improve function, Increase independence, Improve disease control, Therapeutic intervention Activity Recommendations Activity Limitations: per Instructions/Follow-up section (Total Hip Precautions ) Weightbearing Status: Left weightbearing . Instructions / Follow-Up Instructions / Follow-Up ACTIVITY RECOMMENDATIONS: Physical Therapy: * Aggressive physical therapy is not usually needed. You will learn to take care of yourself safely and walk. * Follow the "Hip Precautions Instructions." * In some cases, the manager social responsibility at the hospital will arrange to have a therapist come to your house for the first couple of weeks to help you learn these skills. * You need to practice on your own or with the help of a family member as needed. * When you learn these skills, most of the therapy can be done on your own. Home Exercise: * You were shown a series of exercises in the hospital. Do these exercises three to four times each day including the exercises you were shown in physical therapy. Walking: * Get up and walk several times each day. For the first four weeks, try not to stand or walk for more than one hour at a time. If you do stand or walk for more than one hour, you will not hurt anything, but your leg will likely swell. * As you feel comfortable, you may change from the walker or crutches to a cane and then to independent walking. MEDICATIONS: New Medicine: * You will likely be taking one or more of these medicines: 1. Oxycodone - Take, as directed, when you need it, every four to six hours to control your pain. 2. Aspirin - Thins your blood to lessen the chance of forming a blood clot. * The most common side effects of pain medicine and iron are nausea and constipation. If nausea or constipation is too much of a problem or if you have any questions about your new medicines or doses, call [facility] at . We will try to help you manage these issues. VERY IMPORTANT TO READ AND REVIEW" Pain: * The immediate post-operative period after hip replacement surgery is often quite painful. * You are given a prescription for pain medicine. You should take it, as directed, when you need it, especially before physical therapy and before going to bed. Pain that interferes with sleep is very common and can last several months. * You will likely need pain medicine for the first two to four weeks. It will not stop all of the pain. The pain will lessen and as you feel better, you may change to milder pain medicine such as Tylenol. * The most common side effects of pain medicine are nausea and constipation, so don't take more than you need. SPECIAL CARE INSTRUCTIONS: TEDs/Elastic Stockings: * The white elastic stockings help limit swelling and prevent blood clots from forming in your legs. The more you wear them, the more they work. * Wear them for six weeks. Prevention of Infection: * Take antibiotics one hour before any dental cleaning, dental work, urological procedure, gastrointestinal procedure or any invasive surgery in order to prevent your new joint from getting infected. * You may get the antibiotics from the doctor performing the procedure or you may call our office at before and we will call in a prescription to the pharmacy of your choice. Things to Watch For: * Drainage from the incision site that occurs more than one week after your surgery. * Severely increased leg pain or swelling. * Increased redness at the incision site. * Fever above 102 degrees Fahrenheit. * Unusual chest pain or shortness of breath. * Unusual pain or burning with urination. Call [facility] at with any of the above problems or if you have any questions about your medicines or recovery. FOLLOW UP VISIT: Make an appointment to see your doctor for approximately two weeks after surgery for a progress check and staple removal by calling the office at . Current Hospital Diet Patient's current hospital diet: Regular Diet Discharge Diet Recommended Diet: Regular Diet Procedures Procedures Performed: Left Total Hip Arthroplasty Uncemented Pending Studies Studies pending at discharge: no Medical Emergencies . Who to Call and When: Medical Emergencies: If at any time you feel your situation is an emergency, please call 101 immediately. . Non-Emergent Contact Non-Emergency issues call your: Surgeon . "Provider Documentation" section prepared by Royal Garcia. . VTE Core Measure Inpt VTE Proph given/why not?: Other Anticoagulation, T.E.D. Stockings, SCD's
[2016-12-03] MEDS ORDERED: METOPROLOL SUCC 25MG EXT REL TAB PO SCH (21:00)
[2016-12-03] MEDS: SENNA 8.6 MG TAB PO SCH (22:02)
[2016-12-04] MEDS: CHECK SCOPOLAMINE PATCH PLACEMENT SCH ×2 (00:33→07:49)
[2016-12-04] MEDS: KETOROLAC TROMETHAMINE 30 MG/ML VIAL IV. SCH ×2 (02:17→07:48)
[2016-12-04] MEDS: ACETAMINOPHEN 500 MG TAB PO SCH (05:19)
[2016-12-04 06:47] VITALS: BP 156/72; PULSE 95; TEMP 36.6; O2SAT 96
[2016-12-04 06:49] LABS: BUN/CREATININE RATIO 19.2 (10-20); CALCIUM 8.8 mg/dl (8.5-10.1); POTASSIUM 4.3 mmol/L (3.5-5.1)
[2016-12-04] MEDS: TAPENTADOL ER 50 MG TABCR PO SCH (07:47)
[2016-12-04] MEDS: MULTIVITAMIN TAB PO SCH (07:49)
[2016-12-04] MEDS: FERROUS GLUCONATE 324 MG TAB PO SCH (07:49)
[2016-12-04] MEDS: PANTOprazole SOD 40 MG TAB PO SCH (07:50)
[2016-12-04] MEDS: ASCORBIC ACID 500 MG TAB PO SCH (07:51)
[2016-12-04 08:04] VITALS: TEMP 36.6; O2SAT 96
[2016-12-04] MEDS: DOCUSATE SODIUM 100 MG CAP PO SCH (08:15)
[2016-12-04] MEDS: ASPIRIN 325 MG ECTAB PO SCH (08:15)
--- NOTE | 2016-12-04 08:31 | PROGRESS NOTE ---
DATE: 12/04/2016 SUBJECTIVE: A 61-year-old gentleman, postop day #2 from a left total hip replacement. He is doing well. No complaints. No chest pain or shortness of breath. Not feeling dizzy or lightheaded. The pain is well-controlled. OBJECTIVE: VITAL SIGNS: Temperature 36.6. Vital signs are stable. GENERAL: Reveals a healthy, pleasant and middle-aged male. He is sitting up in his bedside chair eating breakfast. EXTREMITIES: Examination of left hip reveals the dressing to be clean, dry and intact. Leg lengths are equal. Thigh is soft and supple. He is neurologically intact. ASSESSMENT: A 61-year-old gentleman, postop day #2 from left total hip replacement, doing well. The pain is controlled. He has had some hypertension and have elected to manage from the outside. PLAN: 1. DVT prophylaxis including thigh-high TEDs, SCDs and aspirin twice a day. 2. PT/OT. Weightbearing as tolerated. Left total hip protocol. 3. Pain control, doing pretty well with current pain regimen. 4. Hypertension. Medicine is treating him. He will follow up with his primary care doctor from outside. 5. Disposition: Plan to discharge to home with some home health after therapy today.
[2016-12-04 09:00] VITALS: BP 116/68; PULSE 73; O2SAT 98
[2016-12-04] MEDS ORDERED: METOPROLOL SUCC 25MG EXT REL TAB PO SCH (09:00)
[2016-12-04] MEDS ORDERED: TPRSR25 PO (10:22)
--- NOTE | 2016-12-04 10:29 | Hospitalist Progress Note ---
Hospitalist Progress Note Date of Service December 04, 2016. Subjective Pt evaluation today including: conversation w/ patient, conversation w/ family Doing very well, BP high this AM but pt reports he was standing up in the bathroom when it was taken. Denies CP/SOB, is getting ready to go home. All Other Systems: Reviewed and Negative Objective Vital Signs Date Time Temp Pulse Resp B/P Pulse Ox O2 Delivery O2 Flow Rate FiO2 12/04/16 09:00 73 98 12/04/16 08:04 36.6 95 18 96 Room Air Nasal Cannula 12/04/16 06:47 36.6 95 18 156/72 96 Room Air 12/03/16 23:00 36.9 71 16 146/65 97 Room Air 12/03/16 19:20 Room Air 12/03/16 16:10 36.7 73 18 117/69 93 Room Air 12/03/16 12:12 36.7 70 16 99/65 96 Room Air Physical Exam General Appearance: WD/WN, no apparent distress Eyes: normal inspection, sclerae normal ENT: hearing grossly normal Neck: trachea midline Respiratory/Chest: lungs clear, normal breath sounds, no respiratory distress, no accessory muscle use Cardiovascular: regular rate, rhythm, no edema, no gallop, no murmur Abdomen: normal bowel sounds Extremities: no pedal edema, no calf tenderness Neurologic/Psychiatric: no motor/sensory deficits, alert, normal mood/affect, oriented x 3 Skin: normal color, warm/dry, no rash Laboratory Results Last 24 Hours Test 12/04/16 05:36 Sodium Level 140 mmol/L Potassium Level 4.3 mmol/L Chloride Level 106 mmol/L Carbon Dioxide Level 26 mmol/L Anion Gap 8.0 mmol/L Blood Urea Nitrogen 19 mg/dl Creatinine 1.00 mg/dl Est Creatinine Clear Calc Drug Dose 74.1 ml/min Estimated GFR () 93.1 Estimated GFR (Non- 80.3 BUN/Creatinine Ratio 19.2 Random Glucose 98 mg/dl Calcium Level 8.8 mg/dl Assessment and Plan This is a 61 yo M with PMHx of hyperlipidemia, chronic chewing tobacco use, osteoarthritis, insomnia and left hip DJD now s/p L ALEX by Dr. Garcia on . Medicine has been consulted for hypertension s/p surgical procedure. S/p L ALEX by Dr. Garcia on 12/02/16 - Analgesia and DVT ppx per primary team - Bowel regimen in place - PT/OT -ASA bid for DVT proph -plan for dc to home with home health today Hypertension-much improved after IV hydralazine and initiation of Toprol XL 12.5mg daily. May have been secondary to post-op pain or anxiety. No previous history. 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 - Nicotine patch prn if -encouraged cessation Hyperlipidemia - Diet and exercise controlled, pt is not on statin therapy per [employer] Insomnia - Occasionally uses Ativan 0.5 mg daily prn for sleep DVT ppx: teds, scds, ASA per primary team CODE STATUS: FULL CODE Disposition: to home with today
--- NOTE | 2016-12-07 11:47 | DISCHARGE SUMMARY ---
ADMITTING PHYSICIAN AND SURGEON: Dr. Garcia. ADMITTING DIAGNOSIS: Left hip degenerative joint disease. SURGERY PERFORMED: Left total hip arthroplasty. SECONDARY DIAGNOSES: Sleep apnea, neck pain, low back pain, postoperative hypertension. CONSULTS: Dr. Choi for postoperative hypertension. HISTORY AND PHYSICAL EXAMINATION: Well documented in the patient's chart. HOSPITAL COURSE: The patient was admitted on 12/02/2016 underwent total hip arthroplasty, tolerated the procedure well. There were no complications. He was transferred to PACU postoperatively and later to the orthopedic floor for further care. He was given Ancef for antibiotic prophylaxis, VINCENT stockings, SCDs and aspirin for DVT prophylaxis. Hemoglobin, hematocrit and vital signs were monitored during his hospital stay and remained stable. He developed some postoperative hypertension and the hospitalist service was consulted. They followed him throughout his hospital stay and treated the hypertension as well. There were no complications. By postoperative day 2, he was tolerating a general diet. Pain was controlled with oral pain medicine. He was participating in physical therapy and had no signs or symptoms of deep vein thrombosis. On postop day 2, he was discharged home and set up with home health services, given printed discharge instructions including new prescriptions for extra strength Tylenol, aspirin 325 mg b.i.d., metoprolol, oxycodone. Continue his home medications with the exception of his home dose of Tylenol which was changed. Continue physical therapy, weightbearing as tolerated, VINCENT stockings. Follow up in 10-[address] Garcia or sooner if there are any problems or concerns. Also instructed to follow up with his primary care provider regarding his blood pressure.
== END 2016-12-04 10:47 | disposition home health service (06) | DRG 470 ==
LOC: ENRESERVTM → ENRESERVDT → C.ACU 09:27 → C.3E 10:50
PROVIDERS: ADMIT Orthopaedic Surgery Sports Medicine; ATTEND Orthopaedic Surgery Sports Medicine
PROC: 0SRB04A Replacement of Left Hip Joint with Ceramic on Polyethylene Synthetic Substitute, Uncemented, Open Approach (ICD-10-PCS; principal; 2016-12-02 11:15)
DX: M16.12 Unilateral primary osteoarthritis, left hip (principal); I10 Essential (primary) hypertension; R00.0 Tachycardia, unspecified; R11.2 Nausea with vomiting, unspecified; M25.452 Effusion, left hip; M65.9 Synovitis and tenosynovitis, unspecified; I45.10 Unspecified right bundle-branch block; M54.2 Cervicalgia; M54.5 Low back pain; G47.30 Sleep apnea, unspecified; G47.00 Insomnia, unspecified; Z72.0 Tobacco use; Z79.1 Long term (current) use of non-steroidal anti-inflammatories (NSAID); Z79.899 Other long term (current) drug therapy

== ENCOUNTER → 2017-06-07 | Outpatient (CLI) | payer BC ==
[~2017-06-07] MED LIST changes: +ACET-1138 PO; -ACET1TAB84 PO; -ACETAMINOPHEN 500 MG TAB PO SCH; +ASPEC325 PO; -CEFAZOLIN 2000 MG/60 ML D5W 60 ML IV SCH; -FAMOTIDINE 20 MG TAB PO SCH; -GABAPENTIN 300 MG CAP PO SCH; -LACTATED RINGER'S 1000ML IV SCH; -LACTATED RINGER'S 500 ML IV SCH; -METOCLOPRAMIDE HCL 10 MG TAB PO SCH; +RXC5 PO; -SCOPOLAMINE 1.5 MG TDSY TD SCH; +TPRSR25 PO; -TRANEXAMIC ACID INJ 1,000 MG in SODIUM CHLORIDE 0.9% 100ML 100 ML IV SCH
[2017-06-07 13:33] LABS: CHOLESTEROL/HDL RATIO 2.6; PROSTATE SPECIFIC ANTIGEN 0.902 ng/ml (0.000-4.000)
== END | disposition home or self-care (01) ==
LOC: C.LABMFLN 08:43
PROVIDERS: ATTEND Family Medicine
DX: E78.5 Hyperlipidemia, unspecified (principal); Z12.5 Encounter for screening for malignant neoplasm of prostate

== ENCOUNTER 2020-02-04 10:40 | Observation (INO) ==
--- NOTE | 2019-12-31 14:58 | PAT Medication Instructions ---
Medication Instructions Date of Service December 31, 2019 Home Medications Medication Instructions Recorded amlodipine 5 mg tablet 5 mg PO DAILY #90 tab 05/15/19 sildenafil (pulm.hypertension) 20 20 mg PO .COMPLEX #90 tab 06/28/19 mg tablet metoprolol succinate 25 mg 25 mg PO DAILY #90 tab 07/26/19 tablet,extended release 24 hr lorazepam 0.5 mg tablet 0.5 mg PO DAILY PRN #30 tab 08/06/19 duloxetine 60 mg capsule,delayed 60 mg PO BID #180 cap 10/01/19 release diclofenac sodium 75 mg 75 mg PO BID PRN #180 tab 12/16/19 tablet,delayed release amlodipine 5 mg tablet 5 mg PO DAILY sildenafil 20 mg tablet 20 mg PO PRN metoprolol succinate 25 mg tablet,extended release 24 hr 25 mg PO DAILY lorazepam 0.5 mg tablet 0.5 mg PO DAILY PRN duloxetine 60 mg capsule,delayed release 60 mg PO BID diclofenac sodium 75 mg tablet,delayed release 75 mg PO BID PRN ASK your surgeon for instructions diclofenac sodium 75 mg tablet,delayed release 75 mg PO BID PRN DO NOT take the morning of surgery sildenafil 20 mg tablet 20 mg PO PRN Take morning of surgery With a small sip of water, OTHERWISE NOTHING TO EAT OR DRINK AFTER MIDNIGHT: amlodipine 5 mg tablet 5 mg PO DAILY metoprolol succinate 25 mg tablet,extended release 24 hr 25 mg PO DAILY lorazepam 0.5 mg tablet 0.5 mg PO DAILY PRN (if needed) duloxetine 60 mg capsule,delayed release 60 mg PO BID Take evening before surgery sildenafil 20 mg tablet 20 mg PO PRN (if needed) lorazepam 0.5 mg tablet 0.5 mg PO DAILY PRN (if needed) duloxetine 60 mg capsule,delayed release 60 mg PO BID Other Notes If you have any questions please call us at [phone] or [phone] or [phone] or [phone]
--- NOTE | 2020-01-01 14:20 | Anesthesiology Consultation ---
Date of Service January 01, 2020 Assessment & Plan (1) Encounter for pre-operative examination: COVID Status: As of 12/31 PAT assessment, patient denies travel to endemic area, known exposure/sick contacts, or symptoms of COVID19. Patient instructed to follow strict social distancing guidelines, wear a mask in public and avoid travel for 14 days prior to surgery. Preoperative COVID19 testing to be completed prior to surgery. Patient made aware to self-isolate as much as possible between COVID testing and surgery. Chart Review Chart Review: Acceptable Risk for Surgery and Patient seen in Pre Admission Testing Teaching & Discussion Instructed NPO after midnight before surgery, except medications with 15 cc of water. Medication instructions provided according to the PAT guidelines. History Surgery Operation Date: 02/04/20 10:40 Proposed Procedures p Right Total Hip Replacement - Royal Garcia MD Height/Weight Height: 5 ft 7 in Weight: 63.3 kg Allergies Allergy/AdvReac Type Severity Reaction Status Date / Time No Known Drug Allergies Allergy Verified 01/01/20 12:03 Medications Home Medications Medication Instructions Recorded Confirmed Last Taken amlodipine 5 mg tablet 5 mg PO DAILY #90 tab 05/15/19 01/01/20 Unknown sildenafil (pulm.hypertension) 20 20 mg PO .COMPLEX #90 tab 06/28/19 01/01/20 Unknown mg tablet metoprolol succinate 25 mg 25 mg PO DAILY #90 tab 07/26/19 01/01/20 Unknown tablet,extended release 24 hr lorazepam 0.5 mg tablet 0.5 mg PO DAILY PRN #30 tab 08/06/19 01/01/20 Unknown duloxetine 60 mg capsule,delayed 60 mg PO BID #180 cap 10/01/19 01/01/20 Unknown release diclofenac sodium 75 mg 75 mg PO BID PRN #180 tab 12/16/19 01/01/20 Unknown tablet,delayed release Past Medical History Medical History Anxiety and depression GERD (gastroesophageal reflux disease) Hip pain, right Hx of Clostridium difficile infection TREATED 12/2019. Cleared. Hypertension Osteoarthritis Exercise / Class Metabolic Activity II 4-5 Yardwork/Stairs/Walk up hill Past Family History Family History Grandmother (Maternal) Family history of diabetes mellitus Past Surgical History Surgical History History of colonoscopy History of knee surgery RT History of tonsillectomy and adenoidectomy History of total hip arthroplasty LEFT Hx of vasectomy [place] teeth removed Past Anesthesia History No Hx of Anesthesia Complications and No Family Hx of Anesthesia Complications History of PONV No Hx of PONV and No Hx of Motion Sickness Social History Smoking Status: Never smoker tobacco type: smokeless tobacco Do You Dip or Chew Tobacco: Yes (2 CANS PER WEEK -- advised none AM DOS) Hx Alcohol Use: Yes Alcohol type: beer alcohol intake frequency: 0-2 drinks per day (1 with dinner) Hx Substance Use: No substance use type: does not use Review of Systems Pt denies any recent chest pain, shortness of breath, palpitations, cough, fever or URI. Physical Exam Vital Signs BP: 129/65 P: 65bpm SPO2: 99% RA T: R: 12 ENMT Mouth: no dental restorations, no chipped teeth and no loose teeth Thyromental Distance: < 3.5 Finger Breadths (3) Mallampati Class: I Neck normal visual inspection; neck extension not limited Respiratory normal respiratory effort Auscultation: lungs clear to auscultation bilaterally Cardiovascular Rate/Rhythm: regular rhythm and + bradycardic Heart Sounds: no murmur Vessels: no carotid bruit Extremities: no edema Testing Laboratory Results 01/01/20 14:30 01/01/20 14:30 PT 10.4 Seconds (9.0-12.0) 01/01/20 14:30 INR 1.0 (0.9-1.1) 01/01/20 14:30 APTT 29.1 Seconds (21.0-31.0) 01/01/20 14:30 Blood Type A Positive 01/01/20 14:30 Antibody Screen NEGATIVE 01/01/20 14:30 Electrocardiogram Date: 01/01/20 Findings: + NSR @ (62bpm) Chest X-Ray Date: 01/01/20 Findings: + NAD
--- NOTE | 2020-01-01 14:49 | XRay Report ---
TWO VIEW CHEST CLINICAL HISTORY: Preoperative examination. FINDINGS: PA and lateral chest radiographs are compared to study dated 10/17/2016. The cardiomediastin al silhouette is unremarkable. The lungs and pleural spaces are clear. There is no pneumothorax. The bony thorax appears intact. IMPRESSION: No active disease in the chest. ACT 112: Negative or not required by law. Electronically signed by: Kade Osborne M.D. 01/01/2020 2:48 PM
--- NOTE | 2020-01-01 16:09 | Electrocardiogram Report ---
Test Reason : Blood Pressure : / mmHG Vent. Rate : 062 BPM Atrial Rate : 062 BPM P-R Int : 192 ms QRS Dur : 090 ms QT Int : 408 ms P-R-T Axes : 081 012 063 degrees QTc Int : 414 ms Normal sinus rhythm Normal ECG When compared with ECG of 02-DEC-2016 17:49, Nonspecific T wave abnormality no longer evident in Inferior leads Confirmed by Mario Pearson ([id number]) on 01/01/2020 4:08:59 PM Referred By: Royal Garcia Confirmed By:Mario Pearson
[2020-01-01 16:37] LABS: Basophils # (auto) 0.02 K/uL (0-0.2); Basophils % (auto) 0.3 %; Eosinophils # (auto) 0.04 K/uL (0-0.5); Eosinophils % (auto) 0.6 %; Hematocrit (blood only) 44.4 % (42-52); Hemoglobin 15.1 g/dL (14.0-18.0); Immature Granulocytes # (auto) 0.01 K/uL (0.00-0.02); Immature Granulocytes % (auto) 0.2 %; Lymphocytes # (auto) 1.51 K/uL (1.2-3.4); Lymphocytes % (auto) 23.5 %; Mean Corpuscular Volume 94.1 fL (80-100); Mean Platelet Volume 10.7 fL (7.4-10.4); Monocytes # (auto) 0.45 K/uL (0.11-0.59); Neutrophils # (auto) 4.39 K/uL (1.4-6.5); Neutrophils % (auto) 68.4 %; Platelet Count 304 K/uL (130-400); RDW Coefficient of Variation 12.7 % (11.5-14.5); RDW Standard Deviation 43.6 fL (36.4-46.3); Red Blood Count 4.72 M/uL (4.7-6.1); White Blood Count 6.42 K/uL (4.8-10.8)
[2020-01-01 16:46] LABS: BUN Creatinine Ratio 13.2 (10-20); C Reactive Protein 1.74 mg/dl (0-0.29); Calcium 9.3 mg/dl (8.5-10.1); Est GFR (African American) 65.2; Est GFR (Non-African American) 56.2
[2020-01-01 16:49] LABS: Partial Thromboplastin Time 29.1 Seconds (21.0-31.0); Prothrombin Time 10.4 Seconds (9.0-12.0)
--- NOTE | 2020-01-31 18:39 | History and Physical Report ---
DATE OF ADMISSION: 02/04/2020 CHIEF COMPLAINT: Right hip pain. HISTORY OF PRESENT ILLNESS: The patient is a 65-year-old gentleman well known to me from previous left hip replacement done a little over 3 years ago. He has done well on this side. Over the past 8 months or so, he has developed increased pain and discomfort in his right hip. He describes groin pain and some lateral hip pain and some buttock pain. It is starting to really affect his quality of life. He has a very difficult time walking any distance. He has difficulty putting his shoes and socks on. He has pain going up and down steps. The more he walks, the more it hurts. He did have 1 intraarticular hip joint injection which helped him for about a day and that is about it. He now would like to have his hip fixed. He takes diclofenac with minimal relief. PAST MEDICAL HISTORY: Past medical history significant for: 1. Hypertension. 2. Sleep apnea. 3. Anxiety/depression. 4. Low back pain. 5. Gastroesophageal reflux disease. PAST SURGICAL HISTORY: Previous surgeries include: 1. Knee surgery. 2. Tonsillectomy. 3. Left hip replacement done in 12/02/2016. ALLERGIES: None. CURRENT MEDICINES: Include: 1. Metoprolol once a day. 2. Diclofenac. 3. Amlodipine. 4. Lorazepam. 5. Duloxetine. SOCIAL HISTORY: A 65-year-old male. He lives in [place]. Does not smoke. One drink per week. FAMILY HISTORY: Noncontributory. REVIEW OF SYSTEMS: Negative for diabetes, neurologic problems, vascular problems or bleeding disorders. No chest pain or shortness of breath. No history of DVT or PE. PHYSICAL EXAMINATION: GENERAL: Physical examination reveals a healthy, pleasant, thin male. Looks to be in excellent health. HEENT: Benign. NECK: Supple, no lymphadenopathy. LUNGS: Clear to auscultation. HEART: Has a regular rate and rhythm. ABDOMEN: Soft, nontender, nondistended. EXTREMITIES: Grossly neurovascularly intact except as follows. Examination of the right hip reveals the patient walks with just a slight bit of a limp. Leg lengths clinically appear pretty equal. He has pain with hip motion. He can internally rotate to about 5 degrees which creates his pain. Negative straight leg raise. He is neurologically intact. X-RAYS: X-rays of the right hip were reviewed. It shows advanced right hip DJD. He has got complete loss of his superior joint space. This has progressed since his previous films in July. Left hip replacement looks to be in good position. ASSESSMENT AND PLAN: A 65-year-old gentleman, little over 3 years out from a left hip replacement with advanced right hip degenerative joint disease. This has progressed significantly over the past 6 months and he has failed conservative treatment and would like to have right hip fixed. He does have several other comorbidities including hypertension, anxiety and gastroesophageal reflux disease. We will manage these in the hospital. The risks and benefits of right total hip replacement were explained to the patient including but not limited to DVT, PE, , infection, neurological injury, vascular injury, bleeding problem, pain, limited range of motion, stiffness, failure to relieve symptoms, incomplete relief of symptoms, fracture, leg length inequality, nerve palsy, dislocation, need for blood transfusion, etc. The patient understands and desires to proceed. Informed consent was obtained. We did talk to him about taking his metoprolol in the morning of surgery. He is planning to be discharged to home using [facility]. MARLA
[~2020-02-04 10:40] MED LIST changes: -ACET-1138 PO; +ACETAMINOPHEN 500 MG TAB PO SCH; -ASCO1CAP3 PO; -ASPEC325 PO; +BUPIVACAINE 0.5 % 5 MG/1 ML PF 10ML VIAL ONE; +CEFAZOLIN 2000MG 2,000 MG/15 ML SYR IV SCH; -ETOD400T PO; +FAMOTIDINE 20 MG TAB PO SCH; +GABAPENTIN 300 MG CAP PO SCH; -LORA-741 PO; +LR 500ML BOLUS, THEN 15ML/HR IV SCH; +LR 60ML/HR IV SCH; +METOCLOPRAMIDE HCL 10 MG TABLET PO SCH; -MULT-506 PO; -NUTR50CA PO; -RXC5 PO; -TPRSR25 PO; +TRANEXAMIC ACID 1,000 MG **IV Pre-op IV SCH; -VIAGRA PEG
[2020-02-04] MEDS ORDERED: MIDAZOLAM HCL 1 MG/ML 2ML VIAL ONE ×2 (13:13)
[2020-02-04] MEDS ORDERED: PROPOFOL IV EMULSION 10 MG/ML 20 ML VIAL IV ONE (13:13)
[2020-02-04] MEDS ORDERED: MoRPHine SULFATE PF 1 MG/ML 10 ML AMP/VIAL ONE (13:14)
[2020-02-04] MEDS ORDERED: BUPIVACAINE 0.5 % 5 MG/1 ML MPF 30ML VIAL ONE (13:22)
[2020-02-04] MEDS ORDERED: BACITRACIN INJ 50,000 UNIT VIAL ONE (13:22)
[2020-02-04] MEDS ORDERED: EPINEPHrine INJ 1 MG/ML AMP ONE (13:22)
--- NOTE | 2020-02-04 13:53 | History & Physical Bridge Note ---
Date of Service February 04, 2020 History & Physical Bridge Note I have examined the patient, reviewed the History & Physical and in the interval since the performance of the History & Physical I have noted the following changes of clinical significance: no changes noted
[2020-02-04] MEDS ORDERED: ePHEDrine sulfate 50 MG/ML AMP ONE (14:13)
[2020-02-04] MEDS ORDERED: PHENYLEPHRINE HCL 10 MG/ML VIAL ONE (14:14)
[2020-02-04] MEDS ORDERED: MoRPHine SULFATE 2 MG/ML CARP IV PRN (15:03)
[2020-02-04] MEDS ORDERED: MoRPHine SULFATE PF 1 MG/ML 10 ML AMP/VIAL INT SPINAL ONE (15:03)
[2020-02-04] MEDS ORDERED: DiphenhydrAMINE HCL 50 MG/ML VIAL IV PRN (15:03)
[2020-02-04] MEDS ORDERED: LACTATED RINGER'S 500 ML IV PRN (15:03)
[2020-02-04] MEDS ORDERED: NALOXONE HCL 0.08 MG in SYRINGE 1.8 ML IV PRN (15:03)
[2020-02-04] MEDS ORDERED: NALOXONE HCL 0.4 MG/1 ML VIAL/CARP IV PRN ×2 (15:03→17:07)
[2020-02-04] MEDS ORDERED: MEPERIDINE HCL 25 MG/ML CARP/VIAL IV PRN (15:03)
[2020-02-04] MEDS ORDERED: ePHEDrine sulfate 50 MG/ML AMP IV PRN (15:03)
[2020-02-04] MEDS ORDERED: HYDROmorphone INJ 0.5 MG/0.5 ML SYR IV PRN ×2 (15:03→17:07)
[2020-02-04] MEDS ORDERED: NALOXONE HCL 1 MG in SODIUM CHLORIDE 0.9% 1000ML 1,000 ML IV PRN (15:03)
[2020-02-04] MEDS ORDERED: PROMETHAZINE HCL 12.5 MG in SODIUM CHLORIDE 0.9% 50 ML IV PRN (15:05)
[2020-02-04] MEDS ORDERED: ONDANSETRON INJ 2 MG/ML 2 ML VIAL IV PRN ×2 (15:05→17:07)
[2020-02-04] MEDS ORDERED: METOCLOPRAMIDE HCL INJ 5 MG/ML 2 ML VIAL IV PRN ×2 (15:05→17:07)
[2020-02-04] MEDS ORDERED: KETOROLAC TROMETHAMINE 15 MG/ML VIAL IV PRN (15:09)
[2020-02-04] MEDS ORDERED: NO NARCOTICS OR SEDATIVES SCH (15:15)
[2020-02-04] MEDS ORDERED: SODIUM CHLORIDE 0.9% 1000ML 1,000 ML IV SCH (15:15)
--- NOTE | 2020-02-04 15:28 | Post Operative Brief Note ---
PG Immediate Post Op with CF Date of Surgery February 04, 2020 Pre & Post Diagnosis Operation Date: 02/04/20 13:00 Pre-Op Diagnosis: Advanced Right Hip Degenerative Joint Disease Post-Op Diagnosis: Advanced Right Hip Degenerative Joint Disease I identified the patient and participated in the time-out.: Yes Procedure Operation Date: 02/04/20 13:00 Actual Procedures p Right Total Hip Replacement(Right) - Royal Garcia MD Surgeon Royal Garcia MD Metal Tile Lather Pedro, PAC Estimated Blood Loss 300 Findings Consistent with Post-Op Diagnosis Fluids 1200 cc Specimens Specimen Description: a. right femoral head Drains Zeng Catheter ([address], anesthesia to monitor urine output during surgery) Anesthesia Type Spinal MAC Complications none Disposition Accompanied Patient To Recovery: Yes Disposition: Recovery Room
--- NOTE | 2020-02-04 16:08 | XRay Report ---
XR hip 1V RT w pelvis CLINICAL HISTORY: IN PACU - A/P PELVIS and LATERAL HIP COMPARISON: 11/13/2017 DISCUSSION: A total left hip arthroplasty is again evident. Now evident is a total right hip arthropl asty. The acetabular and femoral components appear well seated. There is no dislocation. There are ov erlying skin daljit. There is gas within the soft tissues consistent with recent surgery. IMPRESSION: Postsurgical changes of a total right hip arthroplasty. ACT 112: Negative or not required by law. Electronically signed by: [place] M.D. 02/04/2020 4:07 PM
--- NOTE | 2020-02-04 16:49 | Anesthesiology Progress Note ---
Date of Service February 04, 2020 Anesthesia Post Procedure Vital Signs Vital Signs: Temp Pulse Pulse Resp BP Pulse Ox 02/04/20 16:35 62 18 96 02/04/20 16:25 36.3 C L 74 21 157/72 H 95 02/04/20 16:15 35.8 C L 51 L 15 160/77 H 97 02/04/20 16:05 62 13 176/78 H 97 02/04/20 15:55 61 21 161/83 H 98 02/04/20 15:45 63 18 158/74 H 98 02/04/20 15:35 59 L 17 165/82 H 100 02/04/20 15:29 34.7 C L 65 16 153/80 H 100 02/04/20 11:54 36.6 C 56 L 16 171/79 H 100 02/04/20 11:06 36.8 C 62 16 160/81 H 100 Pain Intensity Right Hip: Pain Intensity: 5 Transfer of Care Handoff Completed per policy Notes Mental Status: alert / awake / arousable and participated in evaluation Patient Amnestic to Procedure: Yes Nausea / Vomiting: adequately controlled Pain: adequately controlled Airway Patency, RR, SpO2: stable & adequate BP & HR: stable & adequate Hydration State: stable & adequate Neuraxial Anesthesia: was administered and sensory block is resolving Anesthetic Complications: no major complications apparent
[2020-02-04] MEDS ORDERED: LORazepam 0.5 MG TAB PO PRN (17:07)
[2020-02-04] MEDS ORDERED: ALUMINUM/MAGNESIUM SUSP 30 ML UDC PO PRN (17:07)
[2020-02-04] MEDS ORDERED: bisacodyL 10 MG SUPP PR PRN (17:07)
[2020-02-04] MEDS ORDERED: TRAMADOL HCL 50 MG TABLET PO PRN (17:07)
[2020-02-04] MEDS ORDERED: TAMSULOSIN HCL 0.4 MG CAP PO PRN (17:07)
[2020-02-04] MEDS ORDERED: MAGNESIUM HYDROXIDE SUSP 30 ML UDC PO PRN (17:07)
[2020-02-04] MEDS ORDERED: SILDENAFIL CITRATE 20 MG TABLET PO SCH (17:07)
[2020-02-04] MEDS ORDERED: BETAMETHASONE DIP AUG (DIPROLENE) 0.05% CR 15 GM TUBE EXT PRN (17:24)
--- NOTE | 2020-02-04 17:40 | Operative Report ---
Post Operative Report Pre & Post Diagnosis Operation Date: 02/04/20 13:00 Pre-Op Diagnosis: Advanced Right Hip Degenerative Joint Disease Post-Op Diagnosis: Advanced Right Hip Degenerative Joint Disease I identified the patient and participated in the time-out.: Yes Procedure Operation Date: 02/04/20 13:00 Actual Procedures p Right Total Hip Replacement(Right) - Royal Garcia MD Surgeon Royal Garcia MD Executive Associate Pedro, ZABRINA Estimated Blood Loss 300 Findings Consistent with Post-Op Diagnosis Operative findings revealed advanced right hip DJD. He had grade 4 [id number] disease of the femoral head and acetabulum. He had a moderate-sized joint effusion. Fairly minimal osteophytes. He did have [id number]-bq-[id number] disease but not much eburnation. Fluids 1200 cc. Specimens Right femoral head sent for pathology. Drains None. Anesthesia Type Spinal MAC Complications none Disposition Disposition: Recovery Room Indications Patient is a 64-year-old very active healthy gentleman whose had a long history of hip problems. He underwent a left hip replacement little over 3 years ago. He did quite well with this but over the past year to 2 years he developed increased pain discomfort in his right hip that is gotten suddenly worse over the past year. X-rays show progressive hip arthritis. He failed conservative care and elected proceed with surgical treatment. Charles Porras, my physician assistant head cashier, was present for the entire procedure. His presence was critical to patient positioning, exposure, retraction, placement the implants, suturing the wound, and placement of the sterile bandage. Description of Procedure Operative implants consist of: 1. Biomet G7 size 54 mm acetabular shell. 2. 6.5 cancellus acetabular screws 1 of 35 mm in length and 1 of 30 mm length 3. an apex hole supervisor nut processing 4. Highly cross-linked polyethylene liner with a 54 mm outer diameter, 36 mm inner diameter. 5. [place] Corail size 12 short neck femoral stem. 6. +5/36 mm ceramic articular ball. Patient was taken to the operating identified placed on the operating table supine position protectors were properly padded. IV antibiotics arrived by anesthesia team. Spinal anesthetic had been implemented in the holding area. Zeng catheter was placed in sterile fashion. The patient was then placed in the left lateral cubitus position. Axillary roll was placed. A Stulberg hip positioner was used for positioning. The right hip and leg were then prepped and draped in usual sterile fashion. A posterior lateral approach of the right hip was then performed to a curvilinear incision centered over the greater trochanter. Sharp dissection was gone through subcutaneous tissue down to level the IT band gluteal fascia the IT band gluteal fascia incised longitudinally in line with skin incision. The underlying greater truck bursa was excised. The piriformis and external rotators and the posterior capsule were then released from the posterior hip joint as a single layer. Great care was taken throughout the procedure protect the sciatic nerve at all times. Hip was internally rotated and dislocated. Femoral neck osteotomy cut was made with Final Cut 10 mm above the lesser trochanter. Femoral head was removed and sent for pathology. The femur was retracted anteriorly. Attention drawn the acetabulum. The acetabular labrum was excised. Pulmonary fat was excised with sequential reaming the acetabular was then performed again with size 47 reamer and progressing up to a 53. I did enter the stem with a 54 reamer. A 54 metal Biomet G7 acetabular shell was then placed about 40 degrees lateral opening and 20 degrees of anteversion. It was fixed with two 6.5 cancellus acetabular screws. Trial liner was placed. Attention drawn the femur. Nipride the proximal femur was entered with a cookie-cutter followed by canal finder. I then broached begin the size 8 and progressing up to a 12 we got excellent fit of the 12. I could not quite get this down to the calcar. We then trialed the hip. The standard neck just seem too long with too much tension. We therefore used the short neck implant to with a +5 articular ball. Hip was fully stable in full extension and external rotation and flexion to 9 degrees into rotation over [address] these implants. Leg lengths seemed appropriate. All trial implants were removed. An apex hole luminary was placed. Highly cross-linked polyethylene liner was placed. A Contreras size 12 short neck KLA femoral stem was impacted in position. +5/36 mm ceramic articular ball was placed. Hip was located once again found to be stable. Attention drawn toward closing. New para the wounds irrigated cups out to pulsatile lavage solution. I did inject locally with 60 cc of half percent Marcaine with epinephrine. The posterior capsule and external rotators were repaired through drill hole in the posterior trochanter as a single layer. The IT band gluteal fascia then closed in 1 PDS suture in running fashion with subcutaneous tissue then closed with 2 layers with a deep layer #1 Vicryl suture and subcutaneous tissues with 2 Dexon suture in a buried interrupted fashion the skin was closed skin daljit. Leg was then cleaned dried a sterile dressing composed Xeroform, 4 x 4's, sterile ABD pad and foam tape was applied. Patient then transferred to the recovery room in stable condition. Patient tolerated the procedure well and there were no complications. Charles Salazar, my physician assistant head cashier, was present for the entire procedure. His presence was critical to patient positioning, prepping and draping, exposure, placement of the implants, suturing the wound, and placement of the sterile bandage. I attest to the content of the Intraoperative Record and any orders documented therein. Any exceptions are noted below.
[2020-02-04] MEDS: SODIUM CHLORIDE 0.9% 1000ML 1,000 ML IV SCH (18:07)
[2020-02-04] MEDS: Scopolamine CHECK PATCH PLACEMENT SCH (18:09)
[2020-02-04] MEDS: ASCORBIC ACID 500 MG TAB PO SCH (18:09)
[2020-02-04] MEDS: FERROUS GLUCONATE 324 MG TAB PO SCH (18:09)
[2020-02-04] MEDS: DiphenhydrAMINE HCL 50 MG/ML VIAL IV PRN (18:16)
[2020-02-04] MEDS: KETOROLAC TROMETHAMINE 15 MG/ML VIAL IV SCH (19:45)
[2020-02-04] MEDS ORDERED: SENNA 8.6 MG TAB PO SCH (21:00)
[2020-02-04] MEDS ORDERED: TRANEXAMIC ACID / 0.7% NACL 1,000 MG/100 ML BAG IV SCH (21:34)
[2020-02-04] MEDS: DOCUSATE SODIUM 100 MG CAP PO SCH (21:38)
[2020-02-04] MEDS: DULOXETINE HCL 60 MG CAP PO SCH (21:38)
[2020-02-04] MEDS: ASPIRIN 81 MG ECTAB PO SCH (21:38)
[2020-02-04] MEDS: CEFAZOLIN 1000MG 1,000 MG/7.5 ML SYR IV SCH (22:46)
[2020-02-04] MEDS: ACETAMINOPHEN 500 MG TAB PO SCH (22:47)
[2020-02-05] MEDS: Scopolamine CHECK PATCH PLACEMENT SCH ×3 (00:02→17:06)
[2020-02-05] MEDS: KETOROLAC TROMETHAMINE 15 MG/ML VIAL IV SCH ×5 (00:02→17:10)
[2020-02-05] MEDS: DiphenhydrAMINE HCL 50 MG/ML VIAL IV PRN (06:08)
[2020-02-05] MEDS: CEFAZOLIN 1000MG 1,000 MG/7.5 ML SYR IV SCH (06:09)
[2020-02-05] MEDS: ACETAMINOPHEN 500 MG TAB PO SCH ×2 (06:09→14:03)
[2020-02-05 07:48] LABS: Basophils # (auto) 0.02 K/uL (0-0.2); Basophils % (auto) 0.2 %; Eosinophils # (auto) 0.03 K/uL (0-0.5); Eosinophils % (auto) 0.3 %; Hemoglobin 12.9 g/dL (14.0-18.0); Immature Granulocytes # (auto) 0.02 K/uL (0.00-0.02); Immature Granulocytes % (auto) 0.2 %; Lymphocytes # (auto) 1.07 K/uL (1.2-3.4); Lymphocytes % (auto) 10.5 %; Mean Corpuscular Hemoglobin 32.2 pg (25-34); Mean Corpuscular Hgb Conc 33.9 g/dL (32-36); Mean Corpuscular Volume 94.8 fL (80-100); Monocytes # (auto) 1.23 K/uL (0.11-0.59); Neutrophils # (auto) 7.85 K/uL (1.4-6.5); Neutrophils % (auto) 76.8 %; Platelet Count 233 K/uL (130-400); RDW Coefficient of Variation 12.6 % (11.5-14.5); RDW Standard Deviation 43.5 fL (36.4-46.3); Red Blood Count 4.01 M/uL (4.7-6.1); White Blood Count 10.22 K/uL (4.8-10.8)
[2020-02-05] MEDS: ASPIRIN 81 MG ECTAB PO SCH (08:20)
[2020-02-05] MEDS: FERROUS GLUCONATE 324 MG TAB PO SCH ×2 (08:20→17:06)
[2020-02-05 08:21] LABS: BUN Creatinine Ratio 14.3 (10-20); Calcium 8.6 mg/dl (8.5-10.1); Creatinine Clr Calc Pharmacy 57.6 ml/min; Est GFR (African American) 76.4; Est GFR (Non-African American) 65.9
[2020-02-05] MEDS: DOCUSATE SODIUM 100 MG CAP PO SCH (08:21)
[2020-02-05] MEDS: ASCORBIC ACID 500 MG TAB PO SCH ×2 (08:21→17:07)
[2020-02-05] MEDS: DULOXETINE HCL 60 MG CAP PO SCH (08:21)
[2020-02-05] MEDS ORDERED: METOPROLOL SUCC 25MG EXT REL TAB PO SCH (09:00)
[2020-02-05] MEDS ORDERED: MULTIVITAMIN TAB PO SCH (09:00)
[2020-02-05] MEDS ORDERED: AMLODIPINE BESYLATE 5 MG TAB PO SCH (09:00)
[2020-02-05] MEDS ORDERED: DC INTRASPINAL MORPHINE SCH (09:03)
[2020-02-05] MEDS: SODIUM CHLORIDE 0.9% 1000ML 1,000 ML IV SCH (15:15)
--- NOTE | 2020-02-05 16:40 | Progress Notes ---
DATE: 02/05/2020 SUBJECTIVE: A 65-year-old gentleman postop day 1 from right hip replacement. He is doing pretty well. Therapy went well. He has been mobilizing. No chest pain or shortness of breath. Not feeling dizzy or lightheaded. OBJECTIVE: VITAL SIGNS: Temperature 36.8. Vital signs stable. GENERAL: Shows a pleasant, middle-aged male. He is sitting up in bed, looks pretty comfortable. EXTREMITIES: Examination of the right leg reveals the leg lengths are equal. Dressing is clean, dry, and intact. He can dorsiflex and plantarflex his foot appropriately. He is neurologically intact. LABORATORY DATA: Hemoglobin 12.9. Hematocrit 38.0. Electrolytes are stable. ASSESSMENT: A 65-year-old gentleman postoperative day 1 from right hip replacement, doing pretty well. Pain is controlled. Hip is located. He is neurologically intact. PLAN: 1. DVT prophylaxis including thigh-high TEDs, SCDs, and aspirin twice a day. 2. PT/OT. Weight bear as tolerated. Right total hip protocol. 3. Pain control, doing well with current pain regimen. 4. Disposition: Plan to discharge to home later today with some home health.
--- NOTE | 2020-02-07 14:45 | Discharge Summary ---
Date of Service February 07, 2020 Admission HPI Per Admitting Provider Well documented in the admission H & P Admission Exam (Per Admitting) Constitutional Well documented in the admission H & P Discharge Data Consultations 02/05/20 08:00 Consult Case Management - Discharge Planning Routine Procedures Performed Operation Date: 02/04/20 13:00 Actual Procedures p Right Total Hip Replacement(Right) - Royal Garcia MD Hospital Course (1) Status post total hip replacement, right: This patient is a 65 year old male admitted on and underwent total hip arthroplasty. He tolerated the procedure well and there were no complications. Transferred to the PACU post op and later to the orthopedic floor for further care. He was given ancef for antibiotic prophylaxis. He was also given VINCENT stockings, SCDs, and aspirin for DVT prophylaxis. Hemoglobin, hematocrit, and vital signs were monitored during his hospital stay and remained stable. Did not require any blood transfusions. There were no complications during his hospital stay. By post op day #1 the patient was tolerating a regular diet, pain was reasonably controlled with oral pain medicine, and he was participating in physical therapy. On post op day #1 the patient was discharged home and set up with home health care. He was given printed discharge instructions including prescriptions for extra strength tylenol, aspirin, and tramadol. Continue physical therapy, weight bearing as tolerated. Total hip precautions. Continue VINCENT stockings. Follow up approximately 2 weeks post op or sooner if there are problems or concerns. Coding Level of Care Code None Diagnoses Status post total hip replacement, right Z96.641
== END 2020-02-05 17:28 | disposition home health service (06) ==
LOC: ASU 10:40 → 3E 10:40

== ENCOUNTER 2024-05-17 06:25 | Observation (INO) ==
--- NOTE | 2024-04-15 12:56 | PAT Medication Instructions ---
Medication Instructions Date of Service April 15, 2024 Home Medications Medication Instructions Recorded metoprolol succinate 25 mg 25 mg PO QAM #30 tabs 11/24/23 tablet,extended release 24 hr amlodipine 5 mg tablet 5 mg PO QAM #90 tabs 02/16/24 multivitamin 1 tab PO QAM metoprolol succinate 25 mg tablet,extended release 24 hr 25 mg PO QAM amlodipine 5 mg tablet 5 mg PO QAM dapagliflozin propanediol 5 mg tablet (Farxiga) 5 mg PO QAM lisinopril 10 mg tablet 10 mg PO QAM lorazepam 0.5 mg tablet 0.5 mg PO UD PRN rosuvastatin 5 mg tablet 5 mg PO QPM sildenafil 100 mg tablet 100 mg PO UD PRN tramadol 50 mg tablet 50 mg PO UD PRN STOP 3 days before surgery dapagliflozin propanediol 5 mg tablet (Farxiga) 5 mg PO QAM Continue as directed lorazepam 0.5 mg tablet 0.5 mg PO UD PRN(if needed) tramadol 50 mg tablet 50 mg PO UD PRN(if needed) DO NOT take the morning of surgery multivitamin 1 tab PO QAM lisinopril 10 mg tablet 10 mg PO QAM sildenafil 100 mg tablet 100 mg PO UD PRN Take morning of surgery With a small sip of water, OTHERWISE NOTHING TO EAT OR DRINK AFTER MIDNIGHT: metoprolol succinate 25 mg tablet,extended release 24 hr 25 mg PO QAM amlodipine 5 mg tablet 5 mg PO QAM Take evening before surgery rosuvastatin 5 mg tablet 5 mg PO QPM Other Notes If you have any questions please call us at [phone] or [phone] or [phone] or [phone]
--- NOTE | 2024-04-23 11:35 | Anesthesiology Consultation ---
Date of Service April 23, 2024 Assessment & Plan (1) Encounter for pre-operative examination: - Patient reports itching with previous orthopedic surgeries (bilat ALEX and left TSA-states causative agent was not identified-denies rash, swelling, difficulty speaking or swallowing) and states he responded well to benadryl in the past, patient not interested in allergy testing-which was discussed in detail with Dr. Becerra who advised given that reaction is reported as itching and responded to benadryl with previous orthopedic surgeries patient is not required to undergo allergy testing and can receive peripheral nerve block. - hearing loss: patient requests people stand directly in view of him so he can read lips. This was also marked on OR sheet. - Outpatient joint pathway: Patient not advised candidate given potential sleep apnea and itching with previous surgeries per Dr. Becerra. Patient made aware, OR and surgeon's office made aware. Booking changed to overnight. Chart Review Chart Review: Acceptable Risk for Surgery and Patient seen in Pre Admission Testing History Surgery Operation Date: 05/17/24 07:00 Proposed Procedures p OP: Right Anatomic Total Shoulder Arthroplasty Versus Total Shoulder Arthroplasty Reverse - Amarjit Marquis, Height/Weight Height: 5 ft 7 in Weight: 67.3 kg Allergies Allergy/AdvReac Type Severity Reaction Status Date / Time atorvastatin AdvReac Unknown muscle Verified 04/12/24 11:10 cramping Medications Home Medications Medication Instructions Recorded Confirmed Last Taken multivitamin 1 tab PO QAM 05/10/22 04/12/24 05/12/22 metoprolol succinate 25 mg 25 mg PO QAM #30 tabs 11/24/23 04/12/24 Unknown tablet,extended release 24 hr amlodipine 5 mg tablet 5 mg PO QAM #90 tabs 02/16/24 04/12/24 Unknown dapagliflozin propanediol 5 mg 5 mg PO QAM 04/12/24 04/12/24 Unknown tablet (Farxiga) lisinopril 10 mg tablet 10 mg PO QAM 04/12/24 04/12/24 Unknown lorazepam 0.5 mg tablet 0.5 mg PO UD PRN anxiety 04/12/24 04/12/24 Unknown rosuvastatin 5 mg tablet 5 mg PO QPM 04/12/24 04/12/24 Unknown sildenafil 100 mg tablet 100 mg PO UD PRN sexual activity 04/12/24 04/12/24 Unknown tramadol 50 mg tablet 50 mg PO UD PRN pain 04/12/24 04/12/24 Unknown Past Medical History Medical History (Updated 04/24/24 @ 10:19 by Lexy Joseph PA-C) Anxiety CKD (chronic kidney disease) stage 3 Hearing loss patient requests people stand directly in view of him so he can read lips Hiatal hernia denies History of Clostridium difficile infection c diff approx 2020 History of COVID-19 hx approx 2020 - asymptomatic. History of gastroesophageal reflux (GERD) History of kidney stones History of skin cancer removed. Hyperlipidemia Hypertension controlled, stable per pt IBS (irritable bowel syndrome) Osteoarthritis RBBB no cardio, follows with PCP Sleep-disordered breathing snoring, occasional gasping for air-denies sleep apnea testing Patient denies h/o stroke, seizures, heart attack, heart failure, DM, blood clots/DVTs or blood transfusions. Exercise / Class Metabolic Activity II 4-5 Yardwork/Stairs/Walk up hill (denies chest discomfort or shortness of breath with one flight of stairs) Past Family History Family History Grandmother (Maternal) Family history of diabetes mellitus Other No family history of adverse response to anesthesia Past Surgical History Surgical History H/O total shoulder replacement LEFT History of colonoscopy History of knee surgery RT History of left hip replacement History of right hip replacement History of tonsillectomy and adenoidectomy Hx of vasectomy [place] teeth removed Past Anesthesia History No Family Hx of Anesthesia Complications and Other (itching with both hip replacements, received benadryl with shoulder replacement) History of PONV No Hx of PONV and No Hx of Motion Sickness Social History Smoking Status: Never smoker tobacco type: cigarettes and smokeless tobacco Do You Dip or Chew Tobacco: Yes (daily use/advised npo) Hx Alcohol Use: Yes Alcohol type: beer alcohol intake frequency: a few times a week Hx Substance Use: No substance use type: does not use Review of Systems Patient denies chest pain, shortness of breath, dyspnea on exertion, reflux, fever, chills, cough, wheezing, or palpitations. Physical Exam Vital Signs Vitals BP 126/72 P 64 TEMP 97.8 SP02 98% on RA RESP 18 Physical Patient resting comfortably in chair in no acute distress, alert and oriented, responding appropriately throughout visit Full cervical extension range of motion without pain TMD 3.5 finger breadths Mallampati Score 2 Dentition: intact, denies chipped or loose teeth, caps/crowns, implants or bridges Lungs: normal respiratory effort. Good air movement, clear throughout to auscultation, no adventitious breath sounds Cardiac: regular rate and rhythm, no murmurs noted Carotid arteries: negative bruit bilat Lab Results Anesthesia Preop Results Results Anesthesia Widget: WBC 8.93 K/ul (4.8-10.8) 04/23/24 Hgb 13.7 g/dl (14.0-18.0) L 04/23/24 Hct 40.2 % (42.0-52.0) L 04/23/24 Plt 292 K/uL (130-400) 04/23/24 Na 137 mmol/L (136-145) 04/23/24 K 4.6 mmol/L (3.5-5.1) 04/23/24 Cl 108 mmol/L (98-107) H 04/23/24 CO2 23 mmol/L (21-32) 04/23/24 BUN 30 mg/dl (6-23) H 04/23/24 Creat 1.59 mg/dl (0.6-1.4) H 04/23/24 Glucose Level 92 mg/dl (70-99(Fasting)) 04/23/24 PT 10.3 Seconds (9.0-12.0) 04/23/24 PTT 26 Seconds (21-31) 04/23/24 INR 0.9 (0.9-1.1) 04/23/24 Blood Type A Positive 04/23/24 Antibody Screen NEGATIVE 04/23/24 Testing Electrocardiogram Date: 04/23/24 Sinus bradycardia, rate 55 bpm Chest X-Ray Date: 04/23/24 No acute cardiopulmonary findings.
[~2024-05-17 06:25] MED LIST changes: -ACETAMINOPHEN 500 MG TAB PO SCH; -CEFAZOLIN 2000MG 2,000 MG/15 ML SYR IV SCH; -FAMOTIDINE 20 MG TAB PO SCH; -GABAPENTIN 300 MG CAP PO SCH; -LR 500ML BOLUS, THEN 15ML/HR IV SCH; -LR 60ML/HR IV SCH; -METOCLOPRAMIDE HCL 10 MG TABLET PO SCH; -TRANEXAMIC ACID 1,000 MG **IV Pre-op IV SCH
--- NOTE | 2024-05-17 06:30 | History & Physical Bridge Note ---
Date of Service May 17, 2024 History & Physical Bridge Note I have examined the patient, reviewed the History & Physical and in the interval since the performance of the History & Physical I have noted the following changes of clinical significance: no changes noted
[2024-05-17] MEDS ORDERED: GLYCOPYRROLATE 0.2 MG/ML VIAL ONE (06:46)
[2024-05-17] MEDS ORDERED: PROPOFOL IV EMULSION 10 MG/ML 20 ML VIAL IV ONE (06:46)
[2024-05-17] MEDS ORDERED: LIDOCAINE 2% 2 ML VIAL/AMP(20MG/ML) INFIL ONE (06:46)
[2024-05-17] MEDS ORDERED: ONDANSETRON INJ 2 MG/ML 2 ML VIAL ONE (06:46)
[2024-05-17] MEDS ORDERED: fentaNYL citrate PF 100 MCG/2 ML VIAL ONE (06:47)
[2024-05-17] MEDS ORDERED: KETOROLAC 30 MG/ML VIAL ONE (06:47)
[2024-05-17] MEDS ORDERED: MIDAZOLAM HCL 1 MG/ML 2ML VIAL ONE (06:47)
[2024-05-17] MEDS ORDERED: KETAMINE HCL 10MG/ML SYR ONE (06:47)
[2024-05-17] MEDS: dexAMETHasone**PF** 10 MG/ML VIAL IV SCH (06:48)
[2024-05-17] MEDS: ACETAMINOPHEN 500 MG TAB PO SCH ×2 (06:48→13:45)
[2024-05-17] MEDS: GABAPENTIN 300 MG CAP PO SCH (06:49)
[2024-05-17] MEDS: FAMOTIDINE 20 MG TAB PO SCH (06:49)
[2024-05-17] MEDS: LR 60ML/HR IV SCH (06:49)
[2024-05-17] MEDS: LR 15ML/HR IV SCH (06:51)
[2024-05-17] MEDS ORDERED: ePHEDrine sulfate 50 MG/ML AMP IV PRN (07:30)
[2024-05-17] MEDS ORDERED: fentaNYL citrate PF 100 MCG/2 ML VIAL IV PRN (07:30)
[2024-05-17] MEDS ORDERED: ONDANSETRON INJ 2 MG/ML 2 ML VIAL IV PRN ×2 (07:30→10:49)
[2024-05-17] MEDS ORDERED: ATROPINE SULFATE 0.1 MG/ML 10ML SYR IV PRN (07:30)
[2024-05-17] MEDS: TRANEXAMIC ACID 1,000 MG **IV Pre-op IV SCH (07:39)
[2024-05-17] MEDS ORDERED: ROCURONIUM BROMIDE 10 MG/ML 5 ML VIAL IV ONE (07:41)
[2024-05-17] MEDS: ceFAZolin 2000MG 2,000 MG/15 ML SYR IV SCH (07:52)
[2024-05-17] MEDS ORDERED: SUGAMMADEX SODIUM 200 MG/2 ML VIAL IV ONE (08:20)
[2024-05-17] MEDS ORDERED: ePHEDrine sulfate 50 MG/5 ML SYR ONE (08:21)
[2024-05-17] MEDS ORDERED: PHENYLEPHRINE 100MCG/ML 5ML SYR ONE (08:21)
[2024-05-17] MEDS: ROPIV 0.5% 246mg, Ketorolac 30mg, EPINEPHrine 0.5mg in NSS INFIL SCH (08:30)
[2024-05-17] MEDS: TRANEXAMIC ACID 1,000 MG **IV Intra-op IV SCH (09:00)
--- NOTE | 2024-05-17 09:08 | Operative Report ---
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 long head of the biceps tendon I identified the patient and participated in the time-out.: Yes Procedure Operation Date: 05/17/24 08:00 Actual Procedures p Right Anatomic Total Shoulder Arthroplasty(Right) with open biceps tenodesis as a distinct and separate procedure (modifier 59)- Amarjit Maqruis DO Surgeon Amarjit Marquis DO Plug Cutting Machine Operator Charles Porras PA-C Estimated Blood Loss 150 Findings Consistent with Post-Op Diagnosis Specimens Right humeral head Description of Procedure A CPT code modifier 59: The long head of the biceps tendon was enlarged and inflamed consistent with tendinopathy. A tenodesis was opted. This was a separate and distinct portion of the procedure. For these reasons, a CPT code modifier 59 will be added to this case. Implants used: I used a [employer] Comprehensive total shoulder arthroplasty system with a size 15 press fit micro humeral stem, a size 50 x 21 eccentric humeral head, and a size 4 glenoid with a trabecular metal peg. The glenoid was cemented in place with Palacos G cement. Preston arrived at [facility] for the above procedure. He was seen in the preoperative holding area and the operative extremity was identified and signed. He was given a preoperative antibiotic, TXA, and an interscalene nerve block. He was taken back to the operating room, laid on table in supine position, and put under general anesthesia. He was then put into the beachchair position. The shoulder was then prepped and draped in sterile fashion. A timeout was done and the patient and the operative extremity was properly identified. A deltopectoral approach was used. Dissection was taken down through the fascia and the deltoid was retracted laterally and the conjoined tendon was retracted medially. The anterior shoulder was exposed. The biceps groove was opened up and the biceps tendon was examined extensively. The biceps tendon demonstrated enlargement and inflammatory changes consistent with longstanding inflammation in the context of osteoarthritis. The long head of the biceps tendon was then tenodesed to the upper border of the pectoralis major. This was a separate and distinct portion of the procedure. The subscapularis was then released off the lesser tuberosity with a centimeter of cuff tissue remaining. The inferior capsule was released and the humeral head was dislocated. The rotator cuff was inspected and intact. A canal finding reamer was sent down the center of the humeral canal. Sequential reaming up to a size 15 reamer was done. Offset reamer a proximal humeral resection guide was placed. The proximal humerus was resected at 135 of inclination and 30 of retroversion. Inferior osteophytes were then removed and the glenoid was exposed. Time was spent doing an appropriate labral release. The glenoid measured to be a size 4. A 3.2 mm Steinmann pin was placed in the central hole of the glenoid vault pin guide. The glenoid was then reamed with a propeller reamer. The central post cutter was then used to prepare for the central boss. The cannulated peripheral peg drill guide was then placed and 3 peg holes were drilled. The final size 4 glenoid was then cemented in place with Palacos G cement. Surrounding soft tissues were then injected with 100 cc of an orthopedic pain control cocktail. Once cement had dried the proximal humerus was once again exposed. Sequential broaching of the humerus up to a size 15 broach was done. Off that broach a size 50 x 21 eccentric humeral head was trialed. The shoulder was then reduced, brought through a full range of motion, and felt to be stable. The shoulder was then dislocated and the broach was removed. The final size 15 micro humeral stem implant was then impacted into place. A size 50 x 21 eccentric humeral head was then impacted onto the humeral stem. The shoulder was then reduced and once again brought through a full range of motion and felt to be stable. The subscapularis was then tenodesed back to the lesser tuberosity with transosseous FiberWire sutures and side to side sutures with the arm in 45 of external rotation. 2 sutures were placed in the lateral rotator interval. A dilute betadyne lavage was then done for 3 minutes. The joint was then irrigated with normal saline solution. Hemostasis was obtained. The interval was closed with 2-0 Vicryl suture. The skin was closed with 2-0 Vicryl and daljit. A Silverlon dressing was placed and the arm was rested in a regular arm sling. He was then extubated and transferred to a hospital bed. He was taken to the postanesthesia care unit in stable condition. He tolerated the procedure well. Charles Porras PA-C, was present for the entire procedure. He was critical for patient positioning, prepping, draping, retraction exposure, wound closure and application of sterile dressing. I attest to the content of the Intraoperative Record and any orders documented therein. Any exceptions are noted below.
--- NOTE | 2024-05-17 10:18 | XRay Report ---
XR shoulder RT min 2V routine CLINICAL HISTORY: Post shoulder surgery COMPARISON: Right shoulder radiographs April 23, 2024. FINDINGS: Alignment of the right shoulder arthroplasty is anatomic. There is no periprosthetic fract ure or unexpected radiopaque foreign body. Lucency projecting over the proximal shaft of the humerus on the AP image likely reflects overlying gas. There are skin daljit. IMPRESSION: Expected findings following right shoulder arthroplasty. ACT 112: Negative or not required by law. Electronically signed by: Gallito Cooper M.D. 05/17/2024 10:16 AM
[2024-05-17] MEDS ORDERED: NALOXONE HCL 0.4 MG/1 ML VIAL/CARP IV PRN (10:49)
[2024-05-17] MEDS ORDERED: METOCLOPRAMIDE HCL INJ 5 MG/ML 2 ML VIAL IV PRN (10:49)
[2024-05-17] MEDS ORDERED: bisacodyL 10 MG SUPP PR PRN (10:49)
[2024-05-17] MEDS ORDERED: MAGNESIUM HYDROXIDE SUSP 30 ML UDC PO PRN (10:49)
[2024-05-17] MEDS ORDERED: HYDROmorphone INJ 0.5 MG/0.5 ML SYR IV PRN (10:49)
[2024-05-17] MEDS ORDERED: LORazepam 0.5 MG TAB PO PRN (10:49)
[2024-05-17] MEDS: ORTHO JOINT ANESTHETIC ONE (11:28)
--- NOTE | 2024-05-17 14:40 | Anesthesiology Progress Note ---
Date of Service May 17, 2024 Anesthesia Post Procedure Vital Signs Vital Signs: Temp Pulse Pulse Resp BP Pulse Ox O2 Del Method 05/17/24 13:48 36.8 C 70 16 145/72 H 97 Room Air 05/17/24 12:45 36.5 C 74 16 165/70 H 99 Room Air 05/17/24 11:43 36.3 C L 71 16 145/75 H 96 Room Air 05/17/24 11:14 36.4 C L 72 16 153/72 H 96 Room Air 05/17/24 11:02 36.6 C 73 16 155/73 H 96 Room Air 05/17/24 10:30 77 21 134/85 97 Room Air 05/17/24 10:15 73 20 156/77 H 97 Room Air 05/17/24 10:05 36.4 C L 76 22 156/84 H 94 Room Air 05/17/24 09:55 75 16 140/87 99 Room Air 05/17/24 09:45 76 22 155/69 H 99 Oxymask 05/17/24 09:35 83 19 147/64 H 99 Oxymask 05/17/24 09:26 36 C L 88 15 144/67 H 98 Oxymask 05/17/24 06:42 36.5 C 81 20 168/95 H 98 Room Air O2 Flow Rate 05/17/24 13:48 05/17/24 12:45 05/17/24 11:43 05/17/24 11:14 05/17/24 11:02 05/17/24 10:30 05/17/24 10:15 05/17/24 10:05 05/17/24 09:55 05/17/24 09:45 3 05/17/24 09:35 3 05/17/24 09:26 6 05/17/24 06:42 Transfer of Care Handoff Completed per policy Notes Mental Status: alert / awake / arousable Patient Amnestic to Procedure: Yes Nausea / Vomiting: adequately controlled Pain: adequately controlled Airway Patency, RR, SpO2: stable & adequate BP & HR: stable & adequate Hydration State: stable & adequate Anesthetic Complications: no major complications apparent and Pt Satisfied with anesthetic care
[2024-05-17] MEDS: ceFAZolin 1000MG 1,000 MG/7.5 ML SYR IV SCH (16:28)
[2024-05-17] MEDS: SENNA 8.6 MG TAB PO SCH (20:04)
[2024-05-17] MEDS: ROSUVASTATIN CALCIUM 5 MG TAB PO SCH (20:04)
[2024-05-17] MEDS: DOCUSATE SODIUM 100 MG CAP PO SCH (20:04)
[2024-05-18] MEDS: dexAMETHasone 4 MG TAB PO SCH (07:35)
[2024-05-18] MEDS: CYANOCOBALAMIN (B-12) 500 MCG TABLET PO SCH (07:37)
[2024-05-18] MEDS: lisinopril 10 MG TAB PO SCH (07:37)
[2024-05-18] MEDS: METOPROLOL SUCC 25MG EXT REL TAB PO SCH (07:37)
[2024-05-18] MEDS: MULTIVITAMIN TAB PO SCH (07:37)
[2024-05-18] MEDS: amLODIPine BESYLATE 5 MG TAB PO SCH (07:37)
[2024-05-18 07:53] VITALS: BP 142/76; PULSE 62; RESP 18; TEMP 97.5; O2SAT 96
--- NOTE | 2024-05-18 08:07 | Orthopedic Progress Note ---
Date of Service May 18, 2024 Assessment & Plan (1) Status post replacement of right shoulder joint: Overall he is doing fairly well. He is not having much pain in the right shoulder. He will be seen by physical therapy today for ambulation and range of motion exercises. He can be discharged to home later today. He will follow-up with orthopedics in 2 weeks. Deonte Johnston was seen and examined at bedside this morning. Overall is doing fairly well. He is not having much pain in the right shoulder. Has been up and ambulating to the bathroom. He has no complaints.. Review of Systems All systems reviewed & are unremarkable except as noted in HPI & below. Physical Exam On physical exam of the right shoulder, the dressing is clean and dry. He is wearing his sling as instructed. He is active motion of his hand and his wrist.. Results & Data Results & Data Laboratory Results . Diagnostic Findings Postoperative x-rays of the right shoulder show the prosthesis to be in anatomic alignment without any evidence of fracture complication, or loosening. PG Care Time/CCT Total # of Minutes Spent Total Time Spent with Patient: Total time spent is greater than 50% in coordination of care (as documented) at patient's floor/unit and/or counseling patient: Coding Level of Care Code 18006 Post Operative Follow-Up Diagnoses Status post replacement of right shoulder joint Z96.611
--- NOTE | 2024-05-18 08:08 | Discharge Summary ---
Date of Service May 18, 2024 Principal Diagnosis Same as "Discharge Diagnosis" noted below under Discharge Instructions. Discharge Exam On physical exam of the right shoulder, the dressing is clean and dry. He is wearing his sling as instructed. He is active motion of his hand and his wrist.. Discharge Data Procedures Performed Operation Date: 05/17/24 08:00 Actual Procedures p Right Anatomic Total Shoulder Arthroplasty(Right) - Amarjit Marquis DO Ordered Studies 05/17/24 05:00 US - OR guided needle placemen Routine Hospital Course (1) Status post replacement of right shoulder joint: On May 17, 2024 Preston arrived at [facility] and underwent a right shoulder replacement without complication. He had a general anesthetic and a left interscalene nerve block. Postoperatively he was placed in a sling and transferred to the general orthopedic floors. His hospital course was uneventful. On postop day #1, his vital signs were stable and his pain is well- controlled. He was able to participate well with physical therapy doing ambulation and range of motion exercises. He was then discharged to home. He will follow-up with orthopedics in 2 weeks. PG Care Time/CCT Total # of Minutes Spent Total Time Spent with Patient: Total time spent is greater than 50% in coordination of care (as documented) at patient's floor/unit and/or counseling patient: Discharge Plan Discharge Items Patient Disposition: Home - Self-Care Reason For Visit: RIGHT TOTAL SHOULDER REPLACEMENT Discharge Diagnosis: Right shoulder replacement Activity: Per Instructions section Non-emergency contact: Surgeon Call non-emergency contact if: your wound has increased redness and your wound has increased drainage Follow-up/Referrals: Kade Thorne MD [Primary Care Provider] - Diet: Regular Addtl Attending Provider Instructions: Activity and Therapy Recommendations: * If you are using [facility] then therapy will be provided at your home until they feel you have accomplished all of your goals. * If you are using [facility] then Physical Therapy will be provided until they feel you are ready to start Outpatient Physical Therapy. * If you are not using home therapy then Outpatient Physical Therapy should start about 3-5 days from your day of surgery. Therapy will last about 8-12 weeks * Wear your sling for 3 weeks, unless otherwise instructed. You may remove your sling to shower and to dress, but otherwise, you should be in your sling at all times, including while sleeping * The shoulder replacement is very stable and you can use your hand while in the sling * You were shown a series of exercises in the hospital. Do these exercises daily including the exercises you were shown in physical therapy. Medications: * Narcotic You will likely be sent home from the hospital with a prescription for the narcotic pain medication that worked best throughout your stay. * Cefadroxil -take the antibiotic twice a day for 10 days to help prevent infection. * Other medications may be prescribed for specific circumstances. If you have any questions, please call the office at . * Resume previous home medications unless otherwise instructed Dressing Care: Leave the Silverlon dressing in place for 7 days. After 7 days you may remove the dressing. If the incision is not draining then you may leave the daljit open to air. If there is a little bit of drainage or if the daljit are getting stuck on your clothing then cover the incision with a dry dressing. The daljit will be removed at your 2 week follow-up appointment. Showering: You may shower with the Silverlon dressing in place. Do not let the shower spray hit the dressing directly. Pat the Silverlon dressing dry. If the dressing becomes wet underneath, then simply remove the dressing. Keep the incision dry until you are 7 days out from the day of surgery. After 7 days you may remove the Silverlon dressing and shower with the daljit exposed. Let soapy water run over the daljit and pat them dry. Do not scrub or soak the incision. Diet: You may resume your previous diet. Things To Watch For: * Drainage from the incision site that occurs more than one week after your surgery. * Increased redness at the incision site. * Fever above 102 degrees Fahrenheit. * Unusual chest pain or shortness of breath. * Call [facility] at with any of the above problems Follow-Up Visit: Follow-up with Dr. Marquis's PA (Amarjit Mart) 2-3 weeks after your day of surgery. He will remove your daljit and answer any questions. If you have any additional questions or concerns, Dr Marquis is usually in the office at the same time and will be available An appointment was probably scheduled when you signed-up for surgery in the office. If you have any questions call More detailed instructions as well as Frequently Asked Questions were provided in a folder by our office when you signed-up for surgery. Please review these instructions when you get home. If you have any further questions or concerns, please feel free to call the office at [phone] Pending Studies at Discharge: No Stand-Alone Forms: [facility], Smoking Cessation Medications and DC Order Prescriptions: New oxycodone 5 mg Tablet 5 mg PO Q4H PRN (Reason: pain) Qty: 30 0RF cefadroxil 500 mg capsule 500 mg PO BID 10 Days Qty: 20 0RF Continued mecobalamin (vitamin B12) 1,000 mcg tablet,disintegrating 1,000 mcg sublingual DAILY Qty: 30 0RF Rx Instructions: place tablet under tongue and allow to dissolve for at least30 secs before swallowing metoprolol succinate 25 mg tablet extended release 24 hr 25 mg PO QAM Qty: 30 6RF Patient Comments: TAKES IN AM amlodipine 5 mg tablet 5 mg PO QAM Qty: 90 3RF multivitamin Tablet 1 tab PO QAM tramadol 50 mg tablet 50 mg PO UD PRN (Reason: pain) sildenafil 100 mg tablet 100 mg PO UD PRN (Reason: sexual activity) Rx Instructions: administer 30 minutes to 4 hours before activity lorazepam 0.5 mg tablet 0.5 mg PO UD PRN (Reason: anxiety) lisinopril 10 mg tablet 10 mg PO QAM rosuvastatin 5 mg tablet 5 mg PO QPM dapagliflozin propanediol [Farxiga] 5 mg tablet 5 mg PO QAM Discharge Orders: Discharge Order (Routine); Ordered 05/18/24 Ordered By: Amarjit Marquis Admission Data Admit Date/Time: 05/17/24 09:30 Attending Provider: Amarjit Marquis Admit Provider: Amarjit Marquis Primary Care Provider: Kade Thorne
[2024-05-18] MEDS ORDERED: NON-FORMULARY MEDICATION (Multivitamin Tablet) PO SCH (09:00)
[2024-05-18] MEDS: oxyCODONE HCL IR 5 MG TAB (IMMEDIATE RELEASE) PO PRN (10:09)
== END 2024-05-18 10:34 | disposition home or self-care (01) ==
LOC: ASU 06:25 → 3E 06:25